=== PATIENT | female | born 1960 | race Caucasian/White ===

== ENCOUNTER 2016-10-24 09:33 | Inpatient (IN) | payer OTHER, MEDICARE ==
[~2016-10-24] VITALS: Ht 160 cm; Wt 92.1 kg
--- NOTE | 2016-10-24 09:44 | NUR ---
AMANDA BROWER FROM [facility]. EMS REPORTS THAT STAFF TOLD THEM SHE HAS BEEN SICK X4 DAYS, WENT TO URGENT CARE YESTERDAY AND TOLD SHE HAS A COLD. IS NOTED TO BE ON 2L 02 VIA MT, SATS 92%. AFEBRILE AT THIS TIME. DR REAGAN TO [facility].
--- NOTE | 2016-10-24 10:18 | RADIOLOGY REPORT ---
EXAMINATION: CHEST 1 VIEW CLINICAL INFORMATION: Cough, fever. COMPARISON: None. TECHNIQUE: An AP view of the chest is provided. FINDINGS: The cardiac silhouette is not enlarged. The mediastinal and hilar contours are unremarkable. There are neither pleural effusions nor pneumothoraces. There is streaky opacification within the right lung base and likely retrocardiac opacification, as well. The osseous structures are unremarkable. IMPRESSION: Streaky right lower lobe and likely retrocardiac airspace disease which could correspond to atelectasis, though there is concern for a developing right lower lobe pneumonia. Recommendation is for a followup chest series to be obtained following treatment and/or resolution of symptoms to assure resolution of this appearance.
--- NOTE | 2016-10-24 10:32 | ED GENERAL ADULT ---
History of Present Illness General Chief Complaint: General Adult Stated Complaint: BIBA FEVER,GEN WEAKNESS Source: patient, old records, EMS Exam Limitations: clinical condition Vital Signs & Intake/Output Vital Signs & Intake/Output Vital Signs Date Time Temp Pulse Resp B/P Pulse O2 O2 Flow FiO2 Ox Delivery Rate 10/24 1126 97.7 83 20 127/71 95 Nasal 2.0L Cannula 10/24 0935 97.9 87 18 125/71 95 Room Air Allergies Coded Allergies: No Known Allergies (10/24/16) Reconcile Medications Acetaminophen (Pain Reliever) 650 MG TABLET.ER 650 MG PO Q4H PAIN (Reported) Calcium Carbonate/Vitamin D3 (Caltrate 600 + D Tablet) 600 MG-800 TABLET 1 TAB PO BID SUPPLEMENT (Reported) Clonazepam (Klonopin) 1 MG TABLET 1 TAB PO BIDP PRN SEIZURE (Reported) Fexofenadine HCl (Jaclyn Allergy) 180 MG TABLET 1 TAB PO PM ALLERGIES ( Reported) Fluticasone Propionate 50 MCG/ACTUATION SPRAY.SUSP 2 SPRAY NASB DAILY CONGESTION (Reported) Folic Acid 1 MG TABLET 1 TAB PO DAILY SUPPLEMENT (Reported) Lactulose (Enulose) 10 GRAM/15 ML SOLUTION 90 ML PO BID CONSTIPATION ( Reported) Levothyroxine Sodium 88 MCG TABLET 1 TAB PO DAILY HYPOTHYROID (Reported) Magnesium Hydroxide (Milk Of Magnesia) 400 MG/5 ML ORAL.SUSP 30 ML PO PRN CONSTIPATION (Reported) Montelukast Sodium (Singulair) 10 MG TABLET 1 TAB PO DAILY ASTHMA (Reported) Omeprazole 20 MG CAPSULE.DR 1 CAP PO DAILY GERD (Reported) Polyethylene Glycol 3350 (Miralax) 17 GRAM POWD.PACK 1 PAC PO DAILY CONSTIPATION (Reported) dissolve in water Pseudoephedrine HCl (Nasal & Sinus Decongestant) 30 MG TABLET 30 MG PO Q4H NASAL CONGESTION (Reported) Quetiapine Fumarate (Seroquel) 50 MG TABLET 3 TAB PO BID DEPRESSION (Reported ) Quetiapine Fumarate (Seroquel) 400 MG TABLET 1 TAB PO QPM DEPRESSION ( Reported) Simvastatin (Simvastatin*) 40 MG TABLET 1 TAB PO QPM HIGH CHOLESTEROL ( Reported) Core Measure Meds Pre-Hospital antibiotics Triage Note: PT LEONARDA FROM [facility]. EMS REPORTS THAT STAFF TOLD THEM SHE HAS BEEN SICK X4 DAYS, WENT TO URGENT CARE YESTERDAY AND TOLD SHE HAS A COLD. IS NOTED TO BE ON 2L 02 VIA NC, SATS 92%. AFEBRILE AT THIS TIME. DR REAGAN TO [facility]. Triage Nurses Notes Reviewed? 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 Associated Symptoms: cough LMP (ages 10-50): post menopausal : No Patient currently breastfeeds: No HPI: Several days prior to admission patient is noted have fever upper respiratory congestion cough decreased appetite and activity. She was started on Bactrim developing a rash. Prior to admission showed increased weakness and was noted to be incontinent of urine with decreased level of consciousness. There is no nausea vomiting diarrhea abdominal pain dysuria headache bleeding noted. Past History Travel History Traveled to [place] past 21 day No Medical History Any Pertinent Medical History? see below for history Neurological: seizure Cardiovascular: hyperlipidemia Respiratory: ASPIRATION PNEUMONIA Gastrointestinal: GERD Psychiatric: INTERMITTENT EXPLOSIVE DISORDER IMPULSE CONTROL DISORDER MOOD DISORDER Endocrine: hypothyroidism Surgical History Surgical History: non-contributory Psychosocial History What is your primary language Gambian Tobacco Use: Cognitive Impairment Family History Hx Contributory? No Review of Systems Review of Systems Constitutional: Reports: see HPI, fever, malaise, weakness. EENTM: Reports: see HPI, nasal congestion. Respiratory: Reports: see HPI, cough. Cardiovascular: Reports: no symptoms. GI: Reports: see HPI. Genitourinary: Reports: no symptoms. Musculoskeletal: Reports: no symptoms. Skin: Reports: see HPI. Neurological/Psychological: Reports: see HPI, cognitive dysfunction, weakness. Hematologic/Endocrine: Reports: no symptoms. Immunologic/Allergic: Reports: no symptoms. All Other Systems: Reviewed and Negative Physical Exam Physical Exam General Appearance: well developed/nourished, lethargic, moderate distress, obese Head: atraumatic, normal appearance Eyes: Bilateral: normal appearance, PERRL, EOMI. Ears, Nose, Throat: normal pharynx, dry mucus members Neck: normal inspection, supple, full range of motion, no midline tenderness Respiratory: chest non-tender, no respiratory distress, quiet respiration, lungs clear, decreased breath sounds, rales Cardiovascular: regular rate/rhythm, normal peripheral pulses, tachycardia, norml femoral pulses equa Peripheral Pulses: 4+ carotid (R), 4+ carotid (L) Gastrointestinal: normal bowel sounds, soft, non-tender, no organomegaly Back: normal inspection, normal range of motion Extremities: normal inspection, normal capillary refill, normal range of motion, no edema 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 Skin: intact, normal color, warm/dry Lymphatic: no anterior cervical vanessa Core Measures ACS in differential dx? No CVA/TIA Diagnosis: No Severe Sepsis Present: No Septic Shock Present: No Progress Differential Diagnoses I considered the following diagnoses in my evaluation of the patient: Pneumonia UTI bacteremia medication reaction Plan of Care: Orders Procedure Date/time Status CBC WITHOUT DIFFERENTIAL 10/25 0600 Active BASIC ELECTROLYTES PLUS BUN&CR 10/25 0600 Active Regular Diet 10/24 L Complete Nothing by Mouth 10/24 D Active CULTURE,URINE 10/24 1109 Active URINALYSIS 10/24 1109 Active TRC EVALUATION (GEN) 10/24 1049 Active OXYGEN SETUP (GEN) 10/24 1049 Active Pathway - chart 10/24 1049 Active House Staff 10/24 1049 Active RAPID VIRAL INFLUENZA A 10/24 1049 Active SPECIMEN TO BE OBTAINED 10/24 1049 Active STREP PNEUMO URINARY ANTIGEN 10/24 1049 Active LEGIONELLA URINARY ANTIGEN 10/24 1049 Active Patient Data 10/24 1040 Active OXYGEN SETUP (GEN) 10/24 1031 Active Saline Lock 10/24 1031 Active Admit to inpatient 10/24 1031 Active Vital Signs 10/24 1031 Active Activity/Ambulation 10/24 1031 Active Code Status 10/24 1031 Active THYROID STIMULATING HORMONE 10/24 1027 Active GLYCOSYLATED HGB 10/24 1027 Active FREE T4 10/24 1027 Active Straight Cath 10/24 1014 Active CULTURE,URINE 10/24 1014 Active URINALYSIS 10/24 1014 Active BLOOD CULTURE 10/24 1007 Active COMPREHENSIVE METABOLIC PANEL 10/24 0945 Active CBC WITHOUT DIFFERENTIAL 10/24 0945 Complete Intake & Output 10/24 0941 Active SWALLOW EVALUATION 10/24 UNK Active Lab Add-on Test 10/24 UNK Active VTE Mechanical Prophylaxis 10/24 UNK Active Vital Signs 10/24 UNK Active Seizure Precautions 10/24 UNK Active Precautions 10/24 UNK Active FingerStick- Glucose 10/24 UNK Active Current Medications Sig/Yolanda Start time Last Medication Dose Stop Time Status Admin Heparin Sodium 5,000 UNIT Q8 10/24 1400 AC (Porcine) Ampicillin Sodium/ 3,000 MG Q6 10/24 1200 UNVr Sulbactam Sodium (Unasyn) Sodium Chloride 100 ML (Normal Saline 0.9%) Sodium Chloride 1,000 ML Q13H 10/24 1115 AC (Normal Saline 0.9%) 10/25 0014 Acetaminophen 650 MG Q6P PRN 10/24 1100 AC (Tylenol) Acetaminophen/ 1 TAB Q6P PRN 10/24 1100 AC Hydrocodone Bitart (Vicodin) Oxycodone/ 2 TAB Q6P PRN 10/24 1100 AC Acetaminophen (Percocet) Laboratory Tests 10/24/16 1027: Anion Gap 10, Estimated GFR 42 L, BUN/Creatinine Ratio 10.0, Glucose 126 H, Hemoglobin A1c Pending, Calcium 9.8, Total Bilirubin 0.4, AST 33, ALT 45, Alkaline Phosphatase 89, Total Protein 6.6, Albumin 3.5, Globulin 3.1, Albumin/ Globulin Ratio 1.1, TSH Pending, Free T4 Pending, CBC w Diff NO MAN DIFF REQ, RBC 4.51, MCV 84.9, MCH 28.1, RDW 16.6 H, MPV 7.3 L, Gran % 67.7, Lymphocytes % 17.7 L, Monocytes % 8.4, Eosinophils % 6.1 H, Basophils % 0.1, Absolute Granulocytes 7.0 H, Absolute Lymphocytes 1.8, Absolute Monocytes 0.9 H, Absolute Eosinophils 0.6, Absolute Basophils 0, PUBS MCHC 33.1 Microbiology 10/24 1109 URINE ROUT: Urine Culture - ORD 10/24 1049 URINE ROUT: Legionella Antigen - ORD 10/24 1049 URINE ROUT: Streptococcus pneumoniae Antigen (M - ORD 10/24 1049 NASOPHARYN: Influenza Virus A & B Rapid Smear - ORD 10/24 1032 BLOOD: Blood Culture - RECD 10/24 1027 BLOOD: Blood Culture - RECD 10/24 1014 URINE ROUT: Urine Culture - ORD Diagnostic Imaging: Viewed by Me: Radiology Read. Discussed w/RAD: Radiology Read. CXR Impression: Streaky right lower lobe and likely retrocardiac airspace disease which could correspond to atelectasis, though there is concern for a developing right lower lobe pneumonia. Initial ED EKG: none Rhythm Strip: sinus tachycardia Departure Departure Time of Disposition: 1100 Disposition: STILL A PATIENT Condition: Stable Clinical Impression Primary Impression: Pneumonia Qualifiers: Pneumonia type: due to unspecified organism Laterality: bilateral Lung location: lower lobe of lung Qualified Code: J18.9 - Pneumonia, unspecified organism Secondary Impressions: Fever Qualifiers: Fever type: unspecified Qualified Code: R50.9 - Fever, unspecified Referrals: PATIENT HAS NO PRIMARY CARE DR (PCP) Departure Forms: Customer Survey General Discharge Information Admission Note Spoke With: DEWAYNE CORBIN MD Documentation of Exam: Documentation of any treatments & extenuating circumstances including Concerns Regarding Discharge (functional status, medication knowledge or non-compliance, living conditions, etc.) that warrant an admission rather than observation: Supplemental oxygen IV fluids IV antibiotics medication adjustment continuing care discharge planning Critical Care Note Critical Care Note Critical Care Time: non-applicable
[2016-10-24 10:35] LABS: ABSOLUTE BASOPHIL COUNT 0 /CUMM (0.0-0.2); ABSOLUTE EOSINOPHIL COUNT 0.6 /CUMM (0.0-0.7); ABSOLUTE LYMPH COUNT 1.8 /CUMM (1.2-3.4); ABSOLUTE MONOCYTE COUNT 0.9 /CUMM (0.10-0.60); BASOPHIL % 0.1 % (0.0-2.0); EOSINOPHIL % 6.1 % (0-5); GRANULOCYTE % 67.7 % (42.2-75.2); HEMATOCRIT 38.3 % (37-47); MEAN CORPUSCULAR HGB 28.1 PG (27.0-31.0); MEAN CORPUSCULAR HGB CONC 33.1 G/DL (33.0-37.0); MEAN CORPUSCULAR VOLUME 84.9 FL (81.0-99.0); MEAN PLATELET VOLUME 7.3 FL (7.4-10.4); PLATELET COUNT 216 /CUMM (130-400); RBC DISTRIBUTION WIDTH 16.6 % (11.5-14.5); RED BLOOD CELL CT 4.51 /CUMM (4.20-5.40); WHITE BLOOD CELL COUNT 10.3 /CUMM (4.8-10.8)
--- NOTE | 2016-10-24 10:41 | History & Physical ---
NIRAV BURGOS 10/24/16 1041: General Information and HPI MD Statement: I have seen and personally examined SRINI NORIEGA and documented this H&P. The patient is a 56 year old F who presented with a patient stated chief complaint of [BIBA for altered mental status, fall, hypoxemia]. Source of Information: nurse at the senior living History of Present Illness: 56-year-old female with a past medical history of seizure disorder, hyperlipidemia, aspiration pneumonia, GERD, impulsive control mood disorder, hypothyroidism was brought in by ambulance from home. According to email EMS reports she has been sick for the past 4 days and went to an urgent care yesterday and was told that she has a cold. She was hypoxic and placed on 2 L of oxygen via nasal cannula with saturations and 92%. History is much limited as patient is minimally verbal and so history is obtained by calling the patient's senior living [facility] and speaking with the patient's nurse Erika who has been with her for almost 2 years now. According to the patient's nurse, Ms. Noriega is verbal at baseline and responds to questions as well as is able to repeat your name. Apparently she was doing completely okay on to September 20 when she underwent a colonoscopy. Following the procedure she was found to be a little bit more congested and was prescribed Robitussin every 6 hours on October 19. She continued to remain congested and on October 20 was taken to walk-in clinic where she was advised to go to the ER for concern for aspiration pneumonia. She was taken to [facility] ER and was diagnosed with upper respiratory tract infection, prescribed Robitussin, Bactrim and loratadine and was advised to follow-up with her primary care physician. She came home and was noted to be doing slightly better the following day in terms of her congestion and was ambulating around. On October 22, nurses reported a rash on her buttock area and the nurse was called who prescribed nystatin cream. The patient's mental status continued to worsen with decreased ambulation and a decrease in her alertness noted. Apparently the patient has been having increasingly difficulty ambulating for the past 4 days now and she has to be wheeled around. This morning at around 6 AM she was found to have fallen to the floor. The event was unwitnessed and it's not sure S2 how long the patient had been lying on the floor before the nurses found her. Apparently she was calling out for help and complaining of pain, seemed more drowsy. When the nurse arrived, her vitals were noted to be a blood pressure of 124/68, tachycardic to 101, MAXIMUM TEMPERATURE of 99.5. The nurses had to help her get up from the floor and called the ambulance which is why she's been brought to the hospital. The nurse also states that the patient normally ambulates independently and uses the restroom however has recently been having episodes of urinary incontinence. She denies any diarrhea, constipation, chest pain, nausea, vomiting, shortness of breath or abdominal pain that the patient may have complained off within the past few days. Allergies/Medications Allergies: Coded Allergies: No Known Allergies (10/24/16) Home Med list Acetaminophen (Pain Reliever) 650 MG TABLET.ER 650 MG PO Q4H PAIN (Reported) Calcium Carbonate/Vitamin D3 (Caltrate 600 + D Tablet) 600 MG-800 TABLET 1 TAB PO BID SUPPLEMENT (Reported) Clonazepam (Klonopin) 1 MG TABLET 1 TAB PO BID SEIZURES (Reported) Fexofenadine HCl (Jaclyn Allergy) 180 MG TABLET 1 TAB PO PM ALLERGIES ( Reported) Fluticasone Propionate 50 MCG/ACTUATION SPRAY.SUSP 2 SPRAY NASB DAILY CONGESTION (Reported) Folic Acid 1 MG TABLET 1 TAB PO DAILY SUPPLEMENT (Reported) Lactulose (Enulose) 10 GRAM/15 ML SOLUTION 90 ML PO BID CONSTIPATION ( Reported) Levothyroxine Sodium 88 MCG TABLET 1 TAB PO DAILY HYPOTHYROID (Reported) Magnesium Hydroxide (Milk Of Magnesia) 400 MG/5 ML ORAL.SUSP 30 ML PO PRN CONSTIPATION (Reported) Metformin HCl (Metformin HCl ER) 500 MG TAB.ER.24 1 TAB PO DAILY DM (Reported ) Montelukast Sodium (Singulair) 10 MG TABLET 1 TAB PO DAILY ASTHMA (Reported) Omeprazole 20 MG CAPSULE.DR 1 CAP PO DAILY GERD (Reported) Polyethylene Glycol 3350 (Miralax) 17 GRAM POWD.PACK 1 PAC PO DAILY CONSTIPATION (Reported) dissolve in water Pseudoephedrine HCl (Nasal & Sinus Decongestant) 30 MG TABLET 30 MG PO Q4H NASAL CONGESTION (Reported) Quetiapine Fumarate (Seroquel) 50 MG TABLET 3 TAB PO BID DEPRESSION (Reported ) Quetiapine Fumarate (Seroquel) 400 MG TABLET 1 TAB PO QPM DEPRESSION ( Reported) Simvastatin (Simvastatin*) 40 MG TABLET 1 TAB PO QPM HIGH CHOLESTEROL ( Reported) Past History Travel History Traveled to [place] past 21 day No Medical History Neurological: seizure Cardiovascular: hyperlipidemia Respiratory: ASPIRATION PNEUMONIA Gastrointestinal: GERD Psychiatric: INTERMITTENT EXPLOSIVE DISORDER IMPULSE CONTROL DISORDER MOOD DISORDER Endocrine: hypothyroidism Surgical History Surgical History: colonoscopy Past Family/Social History Psychosocial History Where do you live? [facility] Who Do You Live With? 3 other roommates Smoking Status: Never Smoked ETOH Use: denies use Illicit Drug Use: denies illicit drug use Functional Ability ADLs Needs Assist: dressing, eating, toileting, bathing. Ambulation: independent IADLs Needs Assist: shopping, housework, finances, food prep, telephone, transportation, medication admin. Review of Systems Review of Systems Constitutional: Reports: weakness. Denies: chills, fever. EENTM: Denies: visual changes. Cardiovascular: Reports: see HPI. Denies: chest pain, palpitations. Respiratory: Reports: see HPI, short of breath. Denies: cough, sputum production, wheezing. GI: Reports: see HPI. Denies: abdominal pain, constipation, diarrhea, nausea, bloody stool, vomiting. Genitourinary: Reports: see HPI. Neurological/Psychological: Reports: weakness. Denies: headache, numbness, tingling, tremors, tonic-clonic seizures, unable to move lower ext, unable to move upper ext. Exam & Diagnostic Data Last 24 Hrs of Vital Signs/I&O Vital Signs Date Time Temp Pulse Resp B/P Pulse O2 O2 Flow FiO2 Ox Delivery Rate 10/24 0935 97.9 87 18 125/71 95 Room Air Physical Exam General Appearance drowsy, lethargic but arousable HEENT Atraumatic, PERRLA, dry mucous membranes Neck Supple, No JVD, No thryomegaly, +2 Carotid Pulse wo Bruit, No LAD Cardiovascular Regular Rate, Normal S1, Normal S2, No Murmurs Lungs b/l coarse ronchi Abdomen Normal Bowel Sounds, Soft, No Tenderness Neurological limited. pt uncooperative Extremities No Clubbing, No Cyanosis, No Edema, Normal Pulses, No Tenderness/ Swelling, has a 1cm x1cm abrasion on her right knee Rectal has a butterfly shaped erythematous rash in her buttock area masuring 5cm x6cm; no xcoriations - fungal Last 24 Hrs of Labs/Jet: Laboratory Tests 10/24/16 1027: Sodium Pending, Potassium Pending, Chloride Pending, Carbon Dioxide Pending, Anion Gap Pending, BUN Pending, Creatinine Pending, BUN/Creatinine Ratio Pending , Glucose Pending, Calcium Pending, Total Bilirubin Pending, AST Pending, ALT Pending, Alkaline Phosphatase Pending, Total Protein Pending, Albumin Pending, Globulin Pending, Albumin/Globulin Ratio Pending, CBC w Diff NO MAN DIFF REQ, RBC 4.51, MCV 84.9, MCH 28.1, RDW 16.6 H, MPV 7.3 L, Gran % 67.7, Lymphocytes % 17.7 L, Monocytes % 8.4, Eosinophils % 6.1 H, Basophils % 0.1, Absolute Granulocytes 7.0 H, Absolute Lymphocytes 1.8, Absolute Monocytes 0.9 H, Absolute Eosinophils 0.6, Absolute Basophils 0, PUBS MCHC 33.1 Microbiology 10/24 1049 URINE ROUT: Legionella Antigen - ORD 10/24 1049 URINE ROUT: Streptococcus pneumoniae Antigen (M - ORD 10/24 1049 NASOPHARYN: Influenza Virus A & B Rapid Smear - ORD 10/24 1032 BLOOD: Blood Culture - RECD 10/24 1027 BLOOD: Blood Culture - RECD 10/24 1014 URINE ROUT: Urine Culture - ORD Diagnostic Data CXR Results FINDINGS: The cardiac silhouette is not enlarged. The mediastinal and hilar contours are unremarkable. There are neither pleural effusions nor pneumothoraces. There is streaky opacification within the right lung base and likely retrocardiac opacification, as well. The osseous structures are unremarkable. IMPRESSION: Streaky right lower lobe and likely retrocardiac airspace disease which could correspond to atelectasis, though there is concern for a developing right lower lobe pneumonia. Recommendation is for a followup chest series to be obtained following treatment and/or resolution of symptoms to assure resolution of this appearance. Assessment/Plan Assessment: 56-year-old female with a past medical history of seizure disorder, hyperlipidemia, aspiration pneumonia, GERD, impulsive control mood disorder, hypothyroidism was brought in by ambulance from senior living, with complaints of upper respiratory tract symptoms and found to be hypoxic, requiring supplemental O2. Vitals on the time of admission blood pressure 125/71, respiratory rate 18, pulse 87, afebrile saturating 95% on room after On physical exam she is drowsy, lethargic but arousable. She is minimally verbal. HEENT revealed PERRLA, dry mucous membranes. Examination of the neck did not reveal any JVD or; lymphadenopathy. Cardio vascular exam is benign with normal S1, S2, no murmurs rubs gallops S3 or S4 appreciated. Auscultation of chest reveals bilateral coarse rhonchi. Abdominal exam seems benign with abdomen soft, nontender, nondistended and bowel sounds in all 4 quadrants. Examination 4 extremities revealed no edema however there is a 1 cm x 1 cm abrasion on her right knee. Examination of the back revealed a butterfly shaped erythematous rash that seems fungal in nature with no excoriation measuring about 5 cm x 6 cm Labs pertinent for normal white blood cell count of 10,300, and H&H of 12.7/38.3 , MCV of 84.9 and platelet count 216,000. Serum chemistries revealed sodium of 143, potassium of 4.7, BUN 13, creatinine of 1.3, serum glucose elevated to 126. LFTs unremarkable with an AST/ALT of 33/45, alkaline phosphatase of 89, total bili 0.4. UA was pending. Chest x-ray revealed streaky right lower lobe and retrocardiac airspace disease concerning for developing right lower lobe pneumonia. In the ER she received a bolus of normal saline, and started on Unasyn 3001 g IV Assessment and plan #Altered mental status Differentials at this point include infection most likely upper respiratory (? flu versus PNA - could be aspiration or CAP) versus urinary tract given episodes of incontinence (however patient doesn't have a white blood cell count however was on oral medications at home) versus hypothyroidism We'll send for rapid flu swab, urinary antigen for Legionella and strep pneumo Follow-up lower respiratory culture Follow-up blood cultures 2 [facility] nebs We'll continue her on Unasyn 3000 mg IV every 6 hours for possible aspiration pneumonia for another 24 hours if continues to remain afebrile and has no leukocytosis or consider discontinuing. Weaning off oxygen to maintain saturations greater than 92% Maintain on aspiration precautions. Nothing by mouth for now. Swallow eval in a.m. Follow-up urine analysis, urine culture Follow-up TSH, free T4 #Hyperlipidemia is on simvastatin 40 mg daily, continue on Lipitor 80 mg daily while in the hospital #Seizure disorder Continue to maintain on seizure precautions Continue Klonopin 1 mg twice a day #Hypothyroidism Continue on Synthroid 88 MCG daily Follow-up TSH and free T4 #Impulsive control mode disorder Continue on Seroquel 150 mg at 8 AM and 5 PM and 400 mg at bedtime #Generalized weakness with inability to ambulate Patient is pretty much independent in terms of ambulation and does not need assistance We'll place PT eval #Mch-bhpqcrp-wpndmaxma diabetes mellitus We will hold metformin 500 mg daily Novolin sliding scale for now given nothing by mouth status Follow-up hemoglobin A1c Accu-Cheks 3 times a day at bedtime -DVT prophylaxis Heparin 5000 international units 3 times a day Diet Nothing by mouth for now CODE STATUS Full code as per W 10. According to the nurses, patient has a nannette appointed conservator. As Ranked By This Provider Problem List: 1. Altered mental state Core Measures/Miscellaneous Acute Coronary Syndrome ACS Diagnosis: No Cerebrovascular Accident CVA/TIA Diagnosis: No Congestive Heart Failure CHF Diagnosis: No Venous Thromboembolism VTE Risk Factors: Age > 40 No [facility] VTE prophylaxis d/t: No contraindications No VTE Pharm Prophylaxis d/t: No contraindications VTE Diagnosis: No VTE Type: NONE VTE Confirmed by (Test): NONE Severe Sepsis Severe Sepsis Present: No Septic Shock Septic Shock Present: No Miscellaneous Documentation Attending Case Discussed With: Dr. Smart Primary Care Physician: PATIENT HAS NO PRIMARY CARE DR Patient sees these Specialists unknown Level of Patient Care: General Medicine Resident Review Statement Resident Statement: admitted by resident FABIAN SMART MD 10/24/16 1521: Attending MD Review Statement Attending Statement Attending MD Statement: examined this patient, discuss w/resident/PA/AUTOMOTIVE DISMANTLER, agreed w/resident/PA/AUTOMOTIVE DISMANTLER, reviewed EMR data (avail), discussed with nursing, amended to note Attending Assessment/Plan: Patient is a 56-year-old female with history of seizure disorder,, impulse control disorder, hypothyroidism, history of aspiration pneumonia and GERD. She was seen at [facility] emergency room 4 days ago due to complaints of malaise and was prescribed Bactrim for presumably for pneumonia at that time. Her malaise worsened and she was seen at an urgent care center yesterday. She was prescribed an antifungal cream for a sacral rash. Her lethargic persisted today resulting in the fall at which point an ambulance was called and she was brought to the emergency room here for evaluation. Here she is found very lethargic. She mainly moans in response to questioning which is unchanged from baseline according to staff from her facility. We are unable to obtain any history from her. There was no report of seizure disorder from correction staff. On examination she was noted to have pupils that are round and equally reactive to light, regular heart sounds, mild rhonchi on auscultation however lungs currently sound clear to auscultation. Abdomen is obese soft and nontender. Bowel sounds are normoactive. She has no peripheral edema. She does move all extremities slowly spontaneously but does not follow commands. Laboratory workup reveals no leukocytosis. her creatinine is mildly elevated however there is no baseline for comparison here. Urinalysis is normal at all suggestive of a urinary tract infection. Influenza screen was negative. Chest x-ray shows streaky right lower lobe and likely retrocardiac airspace disease which could correspond to atelectasis his all developing right lower lobe pneumonia. Problems: 1. Encephalopathy; likely metabolic 2. Concern for aspiration pneumonia 3. Seizure disorder 4. Impulsive control disorder 5. Ipr-iydejqc-ujahjlzrd diabetes mellitus 6. Abnormal creatinine. Baseline is unknown currently. Plan: -Continue empiric therapy with IV antibiotics for aspiration pneumonia. -Follow-up sputum cultures if available and blood cultures. -Maintain aspiration precautions. Keep nothing by mouth for now until mental status improves. -Her altered mentation may be secondary to an underlying infection which is being treated empirically. Differentials also include postictal state versus medication side effect. However her medications for her mood disorder are chronic and have not been changed. -Add prolactin level to labs. -Recommend holding her Klonopin and Seroquel overnight until mental status improves. -In the absence of overwhelming evidence of infection would recommend head CT to rule out an acute intracranial process. -Hydrate gently overnight with D5 half and is at 100 mL an hour and repeat serum chemistry in the morning. -Obtain records from correction regarding her baseline labs. -If no improvement overnight with hydration as well as holding her psychiatric medications we'll consider EEG and neurology consultation.
--- NOTE | 2016-10-24 11:18 | NUR ---
bed 210-2
[2016-10-24] MEDS ORDERED: FOLIC ACID1 M1 PO (11:24)
[2016-10-24] MEDS ORDERED: ENULOSE10 GM/151 PO (11:25)
[2016-10-24] MEDS ORDERED: SEROQUEL50 M1 PO (11:28)
[2016-10-24] MEDS ORDERED: FLUTICASONE PRO16 GM NASB (11:29)
[2016-10-24] MEDS ORDERED: SINGULAIR10 M1 PO (11:29)
[2016-10-24] MEDS ORDERED: OMEPRAZOLE20 M2 PO (11:30)
[2016-10-24] MEDS ORDERED: CALTRATE 600 +1 EACH PO (11:30)
[2016-10-24] MEDS ORDERED: MIRALAX17 G1 PO (11:31)
[2016-10-24] MEDS ORDERED: LEVOTHYROXINE88 MCG PO (11:31)
[2016-10-24] MEDS ORDERED: ALLEGRA ALLERG180 M1 PO (11:32)
[2016-10-24] MEDS ORDERED: KLONOPIN1 M1 PO (11:33)
[2016-10-24] MEDS ORDERED: SIMVASTATIN40 M1 PO (11:33)
[2016-10-24] MEDS ORDERED: PAIN RELIEVER650 MG PO (11:34)
[2016-10-24] MEDS ORDERED: NASAL & SINUS D30 MG PO (11:35)
--- NOTE | 2016-10-24 11:35 | NUR ---
HOUSE STAFF TO [facility].
[2016-10-24] MEDS ORDERED: MILK OF MA400 MG/52 PO (11:37)
[2016-10-24] MEDS ORDERED: METFORMIN HCL500 M2 PO (11:58)
--- NOTE | 2016-10-24 12:15 | NUR ---
PT TURNED AND REPOSITIONED, [facility] PROVIDED. PT NOTED WITH RED BLANCHABLE AREA TO COCCYX.
--- NOTE | 2016-10-24 12:31 | NUR ---
REPORT TO YESSICA TOLENTINO.
--- NOTE | 2016-10-24 12:33 | NUR ---
BANDER HAND AT [facility] [phone]
--- NOTE | 2016-10-24 13:00 | NUR ---
RECEIVED FROM ER: A 56 YEAR OLD FEMALE BIBA FROM SNF ADMITTED WITH PNEUMONIA. PATIENT HAS HISTORY OF MR, ALERT ORIENTED TO SELF, COOPERATIVE WITH CARE. PATIENT SETTLED INTO BED, BED ALARM ON AND CALL ALMANZAR IN REACH. O2 2L NC ON. SEE NURSING ASSESSMENT FLOWSHEETS FOR FURTHER DOCUMENTATION.
[2016-10-24 13:15] VITALS: BP 126/78
--- NOTE | 2016-10-24 13:42 | Admission Certification ---
Admission Certification Certification Statement - As attending physician, I certify that at the time of - admission, based on clinical presentation, severity of - symptoms, need for further diagnostic testing and - therapeutic interventions, and risk of adverse outcomes - without in-hospital treatment, in my clinical assessment, - this patient requires an acute hospital stay for a minimum - of two nights or longer. I have also considered psychsocial - factors such as support system, advanced age, financial - issues, cognitive issues, and failed out-patient treatments, - past re-admission history, safety of patient, and lack of - compliance as applicable. Specific rationale supporting this admission is: Patient is being admitted to the medical service for further evaluation of her encephalopathy likely metabolic. She is currently receiving IV antibiotics.
[2016-10-24 14:31] VITALS: BP 126/78
--- NOTE | 2016-10-24 20:21 | NUR ---
NURSING NOTE; PT STRAIGHT CATH AT 1145 IN THE ER AND 2100ML OBTAINED. PT DUE TO VOID BY 1945 AND UNABLE TO VOID. THIS RN BLADDER SCAN PT AND STRAIGHT CATH PT, STRAIGHT CATH 300ML. WILL CONTINUE TO MONITOR.
[2016-10-24 23:10] VITALS: BP 106/66
[2016-10-25 07:15] VITALS: BP 110/71
[2016-10-25 07:54] LABS: ABSOLUTE BASOPHIL COUNT 0 /CUMM (0.0-0.2); ABSOLUTE EOSINOPHIL COUNT 0.7 /CUMM (0.0-0.7); ABSOLUTE GRANULOCYTE CT 4.4 /CUMM (1.4-6.5); ABSOLUTE LYMPH COUNT 1.4 /CUMM (1.2-3.4); ABSOLUTE MONOCYTE COUNT 0.7 /CUMM (0.10-0.60); BASOPHIL % 0.4 % (0.0-2.0); EOSINOPHIL % 9.3 % (0-5); GRANULOCYTE % 61.8 % (42.2-75.2); MEAN CORPUSCULAR HGB 27.5 PG (27.0-31.0); MEAN CORPUSCULAR HGB CONC 31.9 G/DL (33.0-37.0); MEAN CORPUSCULAR VOLUME 86.3 FL (81.0-99.0); MEAN PLATELET VOLUME 8.2 FL (7.4-10.4); PLATELET COUNT 177 /CUMM (130-400); RBC DISTRIBUTION WIDTH 16.9 % (11.5-14.5); RED BLOOD CELL CT 4.51 /CUMM (4.20-5.40); WHITE BLOOD CELL COUNT 7.1 /CUMM (4.8-10.8)
--- NOTE | 2016-10-25 08:20 | PN- Housestaff ---
JODY SORIA 10/25/16 0820: Subjective Follow-up For: Altered mental status Possible pneumonia Subjective: Patient seen and examined. Her engineering group manager at bedside. As per the observation of proportion logistics supervisor, patient looked more awake and alert and at her baseline today. Patient was shaking hands and speaking in one-word answers to questions. Patient had a swallow eval today when she failed, it was followed by modified barium swallow and now she is on chopped diet with thin liquids. Review of Systems Constitutional: Reports: see HPI. Objective Last 24 Hrs of Vital Signs/I&O Vital Signs Date Time Temp Pulse Resp B/P Pulse O2 O2 Flow FiO2 Ox Delivery Rate 10/25 1404 98.1 78 18 104/60 96 Room Air 10/25 1128 95 Nasal 2.0L Cannula 10/25 0800 Nasal 2.0L Cannula 10/25 0715 98.6 79 18 110/71 95 Nasal 2.0L Cannula 10/25 0000 Nasal 2.0L Cannula 10/24 2310 98.4 74 18 106/66 93 Nasal 2.0L Cannula 10/24 1911 92 Nasal 2.0L Cannula 10/24 1600 Nasal 2.0L Cannula Intake & Output 10/25 1600 10/25 0800 10/25 0000 Intake Total 0 300 800 Output Total 580 850 300 Balance -580 -550 500 Intake, IV 300 800 Intake, Oral 0 0 0 Output, Urine 580 850 300 Physical Exam General Appearance: Alert, Oriented X3, Cooperative, No Acute Distress Skin: No Rashes, No Breakdown, No Significant Lesion HEENT: Atraumatic Neck: Supple Cardiovascular: Normal S1, Normal S2 Lungs: decreased breath sounds Abdomen: Soft, No Tenderness Extremities: No Edema, Normal Pulses Current Medications: Current Medications Sig/Yolanda Start time Last Medication Dose Route Stop Time Status Admin Acetaminophen 650 MG Q6P PRN 10/24 1100 AC PO Acetaminophen/ 1 TAB Q6P PRN 10/24 1100 DC Hydrocodone Bitart PO Albuterol Sulfate 3 ML BID 10/24 1353 AC 10/25 INH 1126 Ampicillin Sodium/ 3,000 MG Q6H 10/24 1700 AC 10/25 Sulbactam Sodium IV 1040 Sodium Chloride 100 ML Atorvastatin Calcium 20 MG 1700 10/24 1700 AC 10/24 PO 1651 Clonazepam 1 MG BID 10/24 2200 CAN PO 10/31 2159 Dextrose/Sodium 1,000 ML Q10H 10/24 1600 DC 10/24 Chloride IV 10/25 0159 1631 Fluticasone 2 SPRAY DAILY 10/24 1156 AC 10/25 Propionate BARNEY 0807 Heparin Sodium 5,000 UNIT Q8 10/24 1400 AC 10/25 (Porcine) SC 1405 Insulin Aspart 0 TIDAC 10/25 1700 AC SC Insulin Human Regular 0 Q6 10/24 1200 DC 10/25 SC 1405 Lactulose 20 GM BID PRN 10/24 1215 AC PO Levothyroxine Sodium 0.088 MG DAILY 10/25 1000 AC 10/25 PO 0807 Magnesium Hydroxide 30 ML DAILY NEEDED PRN 10/24 1200 AC PO Montelukast Sodium 10 MG DAILY 10/25 1000 AC 10/25 PO 0807 Nystatin 1 KRISTINA BID 10/24 1210 AC 10/25 TOP 0806 Omeprazole 20 MG DAILY 10/25 1000 AC 10/25 PO 0807 Oxycodone/ 2 TAB Q6P PRN 10/24 1100 DC Acetaminophen PO Polyethylene Glycol 17 GM DAILY 10/25 1000 AC PO Quetiapine Fumarate 400 MG AT BEDTIME 10/24 2200 CAN PO Quetiapine Fumarate 150 MG 0800,1700 10/24 1700 AC 10/25 PO 0807 Sodium Chloride 1,000 ML Q13H 10/24 1115 DC 10/24 IV 10/25 0014 1445 Vitamin A/Vitamin D 1 KRISTINA BID 10/25 1000 AC 10/25 TOP 0807 Zinc Oxide 1 KRISTINA BID 10/25 1000 AC 10/25 TOP 0807 Last 24 Hrs of Lab/Jet Results Last 24 Hrs of Labs/Mics: Laboratory Tests 10/25/16 0650: Anion Gap 10, Estimated GFR 46 L, BUN/Creatinine Ratio 8.3, CBC w Diff NO MAN DIFF REQ, RBC 4.51, MCV 86.3, MCH 27.5, RDW 16.9 H, MPV 8.2, Gran % 61.8, Lymphocytes % 19.2 L, Monocytes % 9.3, Eosinophils % 9.3 H, Basophils % 0.4, Absolute Granulocytes 4.4, Absolute Lymphocytes 1.4, Absolute Monocytes 0.7 H, Absolute Eosinophils 0.7, Absolute Basophils 0, PUBS MCHC 31.9 L Assessment/Plan Assessment: Patient is a 56-year-old female with history of seizure disorder, impulse control disorder, hypothyroidism, history of aspiration pneumonia and GERD. She was seen at [facility] emergency room 4 days ago due to complaints of malaise and was prescribed Bactrim for presumably for pneumonia at that time. Her malaise worsened and she was seen at an urgent care center yesterday. She was prescribed an antifungal cream for a sacral rash. Her with lethargy persisted which resulted in the fall at which point an ambulance was called and she was brought to the emergency room here for evaluation. On admission she was found to be very lethargic with altered mental status. She was moaning to questions. The primary team was unable to obtain any history from her this morning the engineering group manager mentioned that she comes from a halfway with special needs and on baseline she speaks little. There was no report of seizure disorder from [facility] staff. Her lab workup was not significant for leukocytosis her creatinine was mildly elevated. Influenza screen was negative. Chest x-ray shows streaky right lower lobe and likely retrocardiac airspace disease which could correspond to atelectasis his all developing right lower lobe pneumonia. Problem list 1. Encephalopathy; likely metabolic which is improved now 2. Concern for aspiration pneumonia 3. Seizure disorder 4. Impulsive control disorder 5. Wjr-wzvwdmx-bqjhovxfh diabetes mellitus 6. Abnormal creatinine. Baseline is unknown currently. Plan: Altered mental status possibly due to an underlying infection Patient was admitted to general medical floor for monitoring. She was started on empiric Unasyn for aspiration pneumonia blood cultures and sputum culture are pending. Her influenza screen was negative. Swallowing evaluation To prevent aspiration patient was made nothing by mouth on admission. She failed swallow eval today therefore modified barium swallow was done. She is safely switch to chopped diet with thin liquids now Depression Will continue her Klonopin and Seroquel as her mental status has improved. Patient is started on Klonopin 1 mg twice a day [id number] and 1 mg as when necessary for impulsive disorder. And she is also continued on Seroquel 150 mg twice a day and also 400 mg at bedtime. These medications have been ordered as per the medication information from the halfway facility. Diabetes mellitus Patient is changed to NovoLog sliding scale (low-dose), with serial Accu-Cheks DVT prophylaxis Alps and Lovenox full Code Problem List: 1. Pneumonia 2. Fever Pain Ratin Pain Location: n/a Pain Goal: Pain 4 or less Pain Plan: tylenol prn for pain Tomorrow's Labs & Rationales: none GEN DYERFABIAN 10/25/16 1241: Attending MD Review Statement Attending Statement Attending MD Statement: examined this patient, discuss w/resident/PA/SECURITY POLICE, agreed w/resident/PA/SECURITY POLICE, reviewed EMR data (avail), discussed with nursing, discussed with case mgmt, amended to note Attending Assessment/Plan: Patient is much more alert today. She is moving more spontaneously. She attempts to answer questions however, words are incomprehensible. Product Examiner from her facility was present at the bedside and states that this is the patient 's baseline. A more detailed history was obtained from the logistics supervisor today. Apparently patient had gone to [facility] for a routine colonoscopy. She was found to have 4 polyps which were removed. Recommendations were for follow-up in 4 months. She was prescribed antibiotics to take for 4 days following the procedure. After the procedure she was noted to be more lethargic. She was also noted to be coughing increasingly. She was taken to an urgent care center the day after the procedure as she was found to have a sacral rash. She became increasingly lethargic resulted in a fall that led to her hospitalization yesterday. The logistics supervisor reports that patient is on a standing dose of clonazepam and Seroquel long-term. In addition she has when necessary doses of clonazepam which are administered anytime she has worsening impulsive behavior all when she has a doctor's visit. The logistics supervisor states that patient had significantly more clonazepam due to the visits to the endoscopy suite and the urgent care center. Altered mental status is likely a combination of aspiration pneumonia/ pneumonitis and the increased doses of clonazepam. She is currently back to her baseline mental status. Recommendations: -Her diet may be resumed after swallow evaluation today. -Resume her standing doses of clonazepam and Seroquel.. -Continue antibiotic therapy for empiric treatment of pneumonia given the abnormalities on chest x-ray as well as her high risk for aspiration. She did no months fever or white count however it is noted that she was on antibiotic therapy prior to admission. -If she continues to do well clinically she may be transitioned to Augmentin tomorrow and discharged back to the halfway. We'll complete a 5 day course of antibiotic therapy. -Wean off oxygen supplementation
--- NOTE | 2016-10-25 12:02 | NUR ---
NURSING NOTE: PATIENT LEFT FLOOR VIA STRETCHER WITH DISTRIBUTION FOR MODIFIED BARIUM SWALLOW. NURSING HOME STAFF MEMBER LEFT FLOOR WITH PATIENT WELL. PATIENT ALERT AND ORIENTED AT BASELINE. PATIENT TRASNFERED FROM BED TO STRETCHER AX1. OXYGEN STILL IN PLACE VIA NC @ 2L. WILL AWAIT PATIENT RETURN.
--- NOTE | 2016-10-25 13:33 | RADIOLOGY REPORT ---
EXAMINATION: XR MODIFIED BARIUM SWALLOW CLINICAL INFORMATION: History of possible aspiration pneumonia. COMPARISON: Chest x-ray done 10/24/2016. TECHNIQUE: Examination of the swallowing mechanism was carried out with fluoroscopic monitoring in conjunction with speech pathology. FINDINGS: With puree and nectar thick consistencies, there is no evidence of penetration or aspiration. Oral bolus formation was somewhat impaired. There is some delay in the triggering mechanism. Residual ingested material in the valleculae and piriform sinuses was cleared with consecutive swallows. With thin barium, there was transient consistent penetration but no aspiration. Residual contrast was also seen in the valleculae and piriform sinuses. The patient was able to ingest solid consistencies without adverse findings. Note should be made that the boluses while ingesting thin barium were quite large. FLUOROSCOPY TIME: Total time fluoroscopy was 2 minutes 11 seconds. NUMBER OF IMAGES: 1 recorded image. IMPRESSION: Penetration but no aspiration with thin liquid only. Recommendations will made by speech pathology.
--- NOTE | 2016-10-25 14:00 | NUR ---
NURSING NOTE: PATIENT RETURNED TO FLOOR VIA STRETCHER WITH DISTRIBUTION FROM MODIFIED BARIUM SWALLOW EVALUATION. PATIENT A/O AT BASELINE. DENIES PAIN AT THIS TIME. STAFF FROM [facility] AT BEDSIDE. WILL CONTINUE TO MONITOR.
[2016-10-25 14:04] VITALS: BP 104/60
[2016-10-25 22:35] VITALS: BP 108/64
[2016-10-26 06:59] VITALS: BP 135/78
--- NOTE | 2016-10-26 07:24 | PN- Housestaff ---
JODY SORIA 10/26/16 0723: Subjective Follow-up For: Aletered mental status Possible aspiration pneumonia Tele-Events Since Last Visit: GM Subjective: Patient seen and examined today. She was very sleeping and unarousable in the mroning however, later woke up and was talk. ( back to her baseline) Patient continues to be on 2 L of NC with plan to taper if off gradually. Per manager critical care, senior care needs a assistant in nursing who deals with the oxygen tapering. They do not have the assistant in nursing today and they will arrange for 1. Review of Systems Constitutional: Reports: see HPI. Objective Last 24 Hrs of Vital Signs/I&O Vital Signs Date Time Temp Pulse Resp B/P Pulse O2 O2 Flow FiO2 Ox Delivery Rate 10/26 1109 92 Nasal 3.0L Cannula 10/26 0930 16 91 Nasal 2.0L Cannula 10/26 0800 96 Nasal 2.0L Cannula 10/26 0733 96 Nasal 2.0L Cannula 10/26 0659 97.2 97 20 135/78 86 Room Air 10/26 0000 Nasal 2.0L Cannula 10/25 2235 97.2 74 20 108/64 98 Room Air 10/25 1906 93 Nasal 2.0L Cannula 10/25 1600 Nasal 2.0L Cannula Intake & Output 10/26 1600 10/26 0800 10/26 0000 Intake Total 800 200 240 Output Total 400 450 Balance 400 200 -210 Intake, IV 200 Intake, Oral 800 240 Output, Urine 400 450 Patient 92.079 kg Weight Physical Exam General Appearance: awake, incomprehensible speech Skin: No Rashes, No Breakdown HEENT: Atraumatic Neck: Supple Lymphatic: Cervical nl Cardiovascular: Normal S1, Normal S2 Lungs: Normal Air Movement Abdomen: Normal Bowel Sounds, Soft, No Tenderness Neurological: Normal Tone Current Medications: Current Medications Sig/Yolanda Start time Last Medication Dose Route Stop Time Status Admin Acetaminophen 650 MG Q6P PRN 10/24 1100 AC PO Albuterol Sulfate 3 ML BID 10/24 1353 AC 10/26 INH 1109 Amoxicillin/ 875 MG Q12 10/26 2000 AC Clavulanate Potassium PO Ampicillin Sodium/ 3,000 MG Q6H 10/24 1700 DC 10/26 Sulbactam Sodium IV 0541 Sodium Chloride 100 ML Atorvastatin Calcium 20 MG 1700 10/24 1700 AC 10/25 PO 1814 Clonazepam 1 MG BID 10/25 2200 AC 10/26 PO 11/01 2159 1054 Clonazepam 1 MG ONCE PRN 10/25 1515 AC PO 11/01 1514 Fluticasone 2 SPRAY DAILY 10/24 1156 AC 10/26 Propionate BARNEY 1054 Heparin Sodium 5,000 UNIT Q8 10/24 1400 AC 10/26 (Porcine) SC 1228 Insulin Aspart 0 TIDAC 10/26 1200 AC 10/26 SC 1228 Insulin Aspart 0 TIDAC 10/25 1700 DC SC Lactulose 20 GM BID PRN 10/24 1215 AC PO Levothyroxine Sodium 0.088 MG DAILY 10/25 1000 AC 10/26 PO 1054 Magnesium Hydroxide 30 ML DAILY NEEDED PRN 10/24 1200 AC PO Montelukast Sodium 10 MG DAILY 10/25 1000 AC 10/26 PO 1054 Nystatin 1 KRISTINA BID 10/24 1210 AC 10/26 TOP 1054 Omeprazole 20 MG DAILY 10/25 1000 AC 10/26 PO 1054 Polyethylene Glycol 17 GM DAILY 10/25 1000 AC 10/26 PO 1054 Quetiapine Fumarate 400 MG AT BEDTIME 10/25 2200 AC 10/25 PO 2154 Quetiapine Fumarate 150 MG 0800,1700 10/24 1700 AC 10/26 PO 1054 Vitamin A/Vitamin D 1 KRISTINA BID 10/25 1000 AC 10/26 TOP 1054 Zinc Oxide 1 KRISTINA BID 10/25 1000 AC 10/26 TOP 1054 Last 24 Hrs of Lab/Jet Results Last 24 Hrs of Labs/Mics: Laboratory Tests 10/26/16 0615: Anion Gap 8, Estimated GFR 46 L, BUN/Creatinine Ratio 10.8 Assessment/Plan Assessment: Patient is a 56-year-old female with history of seizure disorder, impulse control disorder, hypothyroidism, history of aspiration pneumonia and GERD. She was seen at [facility] emergency room 4 days ago due to complaints of malaise and was prescribed Bactrim for presumably for pneumonia at that time. Her malaise worsened and she was seen at an urgent care center yesterday. She was prescribed an antifungal cream for a sacral rash. Her with lethargy persisted which resulted in the fall at which point an ambulance was called and she was brought to the emergency room here for evaluation. On admission she was found to be very lethargic with altered mental status. She was moaning to questions. The primary team was unable to obtain any history from her this morning the group program manager mentioned that she comes from a half-way with special needs and on baseline she speaks little. There was no report of seizure disorder from [facility] staff. Her lab workup was not significant for leukocytosis her creatinine was mildly elevated. Influenza screen was negative. Chest x-ray shows streaky right lower lobe and likely retrocardiac airspace disease which could correspond to atelectasis his all developing right lower lobe pneumonia. Problem list 1. Encephalopathy; likely metabolic which is improved now 2. Concern for aspiration pneumonia 3. Seizure disorder 4. Impulsive control disorder 5. Xay-xrgjxjz-faabcmmgs diabetes mellitus 6. Abnormal creatinine. Baseline is unknown currently. Plan: Altered mental status possibly due to an underlying infection Patient was admitted to general medical floor for monitoring. She was started on empiric Unasyn for aspiration pneumonia blood cultures and sputum culture are pending. Her influenza screen was negative. She is transitioned to PO augmentin today for a total antibiotic course of 5 days. Patient is still on 2 L NC, plan to taper the oxygen down keep her saturations > 92% Swallowing evaluation To prevent aspiration patient was made nothing by mouth on admission. She failed swallow eval today therefore modified barium swallow was done. She is safely switch to chopped diet with thin liquids now. Depression Will continue her Klonopin and Seroquel as her mental status has improved. Patient is started on Klonopin 1 mg twice a day itwxze-nqy-cmehk and 1 mg as when necessary for impulsive disorder. And she is also continued on Seroquel 150 mg twice a day and also 400 mg at bedtime. These medications have been ordered as per the medication information from the half-way facility. Diabetes mellitus Patient is changed to NovoLog sliding scale (low-dose), with serial Accu-Cheks DVT prophylaxis Alps and Lovenox full Code Problem List: 1. Altered mental state 2. Pneumonia Pain Ratin Pain Location: n/a Pain Goal: Pain 4 or less Pain Plan: tylenol prnf or pain Tomorrow's Labs & Rationales: none FABIAN BLEVINS MD 10/26/16 1108: Attending Review Statement Attending Statement Attending Statement: examined this patient, discuss w/resident/PA/CLAIMS COORDINATOR, agreed w/resident/PA/CLAIMS COORDINATOR, reviewed EMR data (avail), discussed with nursing, discussed with case mgmt, amended to note Attending Assessment/Plan: Patient seen and examined. She was very drowsy this morning and initially difficult to arouse. She however awoke spontaneously. Answers simple questions and 8 breakfast without any incident. She is afebrile and hemodynamically stable. She is maintaining saturation on 2 L of oxygen. On examination her lungs are clear bilaterally. She had a modified barium swallow yesterday with no aspiration. Recommendations: -Transition to Augmentin completed total of 5 days of therapy. -Maintain aspiration precautions. -She is medically stable to be discharged today. She may continue with oxygen supplementation upon discharge and this can eventually be weaned off as tolerated.
[2016-10-26] MEDS ORDERED: AUGMENTIN 875-1 EACH PO (08:18)
--- NOTE | 2016-10-26 08:20 | Patient Discharge Instructions ---
Discharge Instructions General Discharge Information You were seen/treated for: aspiration pneumonia Special Instructions: Plwase follow up with pcp upon discharge Patient is on chopped diet with thin liquids. Please taper off NC oxygen as tolerated. Acute Coronary Syndrome Inclusion Criteria At DC or during hospital stay patient has or had the following: ACS DIAGNOSIS No Discharge Core Measures Meds if any: Prescribed or Continued at Discharge Meds if any: NOT Prescribed or Continued at Discharge Congestive Heart Failure Inclusion Criteria At DC or during hospital stay patient has or had the following: CHF DIAGNOSIS No Discharge Core Measures Meds if any: Prescribed or Continued at Discharge Meds if any: NOT Prescribed or Continued at Discharge Cerebrovascular accident Inclusion Criteria At DC or during hospital stay patient has or had the following: CVA/TIA Diagnosis No Discharge Core Measures Meds if any: Prescribed or Continued at Discharge Meds if any: NOT Prescribed or Continued at Discharge Venous thromboembolism Inclusion Criteria VTE Diagnosis No VTE Type NONE VTE Confirmed by (Test) NONE Discharge Core Measures - Per Current guidelines, there needs to be overlap - treatment for the first 5 days of Warfarin therapy. - If discharged on Warfarin prior to 5 days of - overlap therapy, the patient will need to be - assessed for post discharge needs including - *Post discharge parental anticoagulation - *Warfarin and/or parental anticoagulation education - *Follow up date to check INR post discharge At least 5 days overlap therapy as Inpatient No Meds if any: Prescribed or Continued at Discharge Note: Overlap Therapy is Warfarin and Anticoagulant Meds if any: NOT Prescribed or Continued at Discharge
--- NOTE | 2016-10-26 08:20 | Discharge Summary ---
See Addendum Visit Information Visit Dates Admission Date: 10/24/16 Discharge Date: 10/26/16 Hospital Course Course Attending Physician: FABIAN BLEVINS M.D Primary Care Physician: PATIENT HAS NO PRIMARY CARE DR Hospital Course: Patient is a 56-year-old female with history of seizure disorder, impulse control disorder, hypothyroidism, history of aspiration pneumonia and GERD. She was seen at [facility] emergency room 4 days ago due to complaints of malaise and was prescribed Bactrim for presumably for pneumonia at that time. Her malaise worsened and she was seen at an urgent care center yesterday. She was prescribed an antifungal cream for a sacral rash. Her with lethargy persisted which resulted in the fall at which point an ambulance was called and she was brought to the emergency room here for evaluation. On admission she was found to be very lethargic with altered mental status. She was moaning to questions. The primary team was unable to obtain any history from her this morning the machine group leader mentioned that she comes from a [facility] with special needs and on baseline she speaks little. There was no report of seizure disorder from [facility] staff. Her lab workup was not significant for leukocytosis her creatinine was mildly elevated. Influenza screen was negative. Chest x-ray shows streaky right lower lobe and likely retrocardiac airspace disease which could correspond to atelectasis his all developing right lower lobe pneumonia. Problem list 1. Encephalopathy; likely metabolic which is improved now 2. Concern for aspiration pneumonia 3. Seizure disorder 4. Impulsive control disorder 5. Auh-dxznsrb-rasftopwc diabetes mellitus 6. Abnormal creatinine. Baseline is unknown currently. Plan: Altered mental status possibly due to an underlying infection Patient was admitted to general medical floor for monitoring. She was started on empiric Unasyn for aspiration pneumonia blood cultures and sputum culture are pending. Her influenza screen was negative. She got 2 days of IV unasyn, she will be switched to PO augmentin for a total of 3 days to complete a 5 day course of antibiotics. Swallowing evaluation To prevent aspiration patient was made nothing by mouth on admission. She failed swallow eval today therefore modified barium swallow was done. She is safely switch to chopped diet with thin liquids now Depression Will continue her Klonopin and Seroquel as her mental status has improved. Patient is started on Klonopin 1 mg twice a day [id number] and 1 mg as when necessary for impulsive disorder. And she is also continued on Seroquel 150 mg twice a day and also 400 mg at bedtime. These medications have been ordered as per the medication information from the [facility] facility. Diabetes mellitus Patient was changed to NovoLog sliding scale (low-dose), with serial Accu-Cheks as an inpatient. She can be switched back to metformin as outpatient DVT prophylaxis Alps and Lovenox Patient is full code. Allergies: Coded Allergies: No Known Allergies (10/24/16) Disposition Summary Disposition Principal Diagnosis: Altered mental status possible due to aspiration pneumonia Additional Diagnosis: Dysphagia Diabetes Discharge Disposition: SNF Discharge Instructions General Discharge Information Code Status: Full Code Patient's Diet: chopped with thin liquids Patient's Activity: as tolerated Follow-Up Instructions/Appts: Please follow up with your PCP upon discharge. Please continue diet on mechanical chopped and thin liquids. Medications at Discharge Discharge Medications: Continue taking these medications: Folic Acid (Folic Acid) 1 MG TABLET 1 Tablet ORAL DAILY Lactulose (Enulose) 10 GRAM/15 ML SOLUTION 90 Milliliters ORAL TWICE DAILY Quetiapine Fumarate (Seroquel) 50 MG TABLET 3 Tablet ORAL TWICE DAILY Quetiapine Fumarate (Seroquel) 400 MG TABLET 1 Tablet ORAL Every night Fluticasone Propionate (Fluticasone Propionate) 50 MCG/ACTUATION SPRAY.SUSP 2 [place]imax Both sides of nose DAILY Montelukast Sodium (Singulair) 10 MG TABLET 1 Tablet ORAL DAILY Omeprazole (Omeprazole) 20 MG CAPSULE.DR 1 Capsule ORAL DAILY Calcium Carbonate/Vitamin D3 (Caltrate 600 + D Tablet) 600 MG-800 TABLET 1 Tablet ORAL TWICE DAILY Levothyroxine Sodium (Levothyroxine Sodium) 88 MCG TABLET 1 Tablet ORAL DAILY Polyethylene Glycol 3350 (Miralax) 17 GRAM POWD.PACK 1 Packet ORAL DAILY Instructions: dissolve in water Fexofenadine HCl (Jaclyn Allergy) 180 MG TABLET 1 Tablet ORAL PM Simvastatin (Simvastatin*) 40 MG TABLET 1 Tablet ORAL Every night Clonazepam (Klonopin) 1 MG TABLET 1 Tablet ORAL TWICE DAILY Days = 30 Acetaminophen (Pain Reliever) 650 MG TABLET.ER 650 Milligram ORAL Q4H Pseudoephedrine HCl (Nasal & Sinus Decongestant) 30 MG TABLET 30 Milligram ORAL Q4H Magnesium Hydroxide (Milk Of Magnesia) 400 MG/5 ML ORAL.SUSP 30 Milliliters ORAL NEEDED Metformin HCl (Metformin HCl ER) 500 MG TAB.ER.24 1 Tablet ORAL DAILY Days = 30 Start taking the following new medications: Amoxicillin/Potassium Clav (Augmentin 875-125 Tablet) 875 MG-125 MG TABLET 1 Tablet ORAL TWICE DAILY Qty = 5 No Refills Copies To: FABIAN BLEVINS M.D Attending MD Review Statement Documenting Attending: FABIAN BLEVINS M.D Other Findings: I have reviewed the discharge summary.
--- NOTE | 2016-10-26 09:59 | NUR ---
PATIENT NOTED TO BE SLEEPY ALL MORNING, ATTENDING PHYSICIAN AND RESIDENT CAME TO SEE PATIENT, PATIENT WAS SLIGHTLY DIFFICULT TO AROUSE. PATIENT WOULD SPEAK BUT NOT OPEN EYES, STATING SHE WANTS TO SLEEP. O2 SAT 91% ON 2L VIA NC. NEW ORDER TO DRAW ABG'S GIVEN. RESPIRATORY THERAPY PAGED. WILL CONTINUE TO MONITOR.
--- NOTE | 2016-10-26 10:21 | NUR ---
NURSING NOTE: PATIENT AWAKE AND ALERT AT THIS TIME. ABG ORDER CANCELLED AT THIS SINCE PATIENT HAS AWOKEN. PATIETN EATING BREAKFAST WITH MST. WILL CONTINUE TO MONITOR.
--- NOTE | 2016-10-26 14:30 | NUR ---
NURSING NOTE: PATIENT STILL MORE DROWSY AFTER EATING HER BREAKFAST. PATIENT VERBAL TO STIMULI BUT DOES NOT OPEN EYES. ABG'S RE-ORDERED BY RESIDENT JODY. RESPIRATORY THERAPY NOTIFIED. WILL CONTINUE TO MONITOR.
--- NOTE | 2016-10-26 15:06 | Event Note ---
Event Note Event Note: Of note, patient appears very lethargic today. Her ABGs do not show any acidemia. We will obtain chest CT without contrast to evaluate for underlying infectious process in the lungs possible aspiration pneumonia? Her bedtime Seroquel 400 mg is held along with her 1 mg twice a day Klonopin
--- NOTE | 2016-10-26 18:27 | CT SCAN REPORT ---
EXAMINATION: CT CHEST WITHOUT CONTRAST CLINICAL INFORMATION: Concern for aspiration. COMPARISON: Chest x-ray 10/24/2016 TECHNIQUE: Multidetector volumetric CT imaging of the chest was done. Axial MIP volume rendering provided. Sagittal and coronal reformatted images were obtained. DLP: 612.5 mGy-cm FINDINGS: LUNGS: Asymmetric elevation of right diaphragm above the left. There is dense consolidation with air bronchograms in the right lower lobe. There are small infiltrate the left lung base with associated bronchial wall thickening at the posterior left lung base. Central bronchial airways are open. There is calcification of the proximal tracheobronchial tree. MEDIASTINUM: No mediastinal mass or significant lymphadenopathy. Small pericardial effusion. PLEURA: Small volume layering right pleural effusion. AXILLA: No lymphadenopathy. UPPER ABDOMEN: Unremarkable. OSSEOUS STRUCTURES: Unremarkable. IMPRESSION: Bibasilar infiltrate, right greater than left. Small right pleural effusion. Small pericardial effusion.
[2016-10-26 23:13] VITALS: BP 120/72
[2016-10-27 06:32] VITALS: BP 119/58
--- NOTE | 2016-10-27 07:33 | PN- Housestaff ---
See Addendum Subjective Follow-up For: Aspiration pneumonia Impulse disorder Hypoxic respiratory failure Subjective: Patient seen and examined. She is more awake and alert today. She is asking for Valerie who is her dimension quarry supervisor. Patient will be discharged back to the nursing home today with oxygen. Per staff at nursing home, they did educate the nurse taking care of for her to taper oxygen. Patient will continue her antibiotic course of 5 days at the rehabilitation. Review of Systems Constitutional: Reports: see HPI. Objective Last 24 Hrs of Vital Signs/I&O Vital Signs Date Time Temp Pulse Resp B/P Pulse O2 O2 Flow FiO2 Ox Delivery Rate 10/27 1038 95 Nasal 3.0L Cannula 10/27 0632 98.9 79 20 119/58 94 Nasal 2.0L Cannula 10/27 0000 Nasal 3.0L Cannula 10/26 2313 99.2 83 20 120/72 92 Nasal 2.0L Cannula 10/26 2010 95 Nasal 4.0L Cannula 10/26 1600 Nasal 3.0L Cannula Intake & Output 10/27 1600 10/27 0800 10/27 0000 Intake Total 1500 Output Total 1000 Balance 500 Intake, Oral 1500 Number 1 Bowel Movements Output, Urine 1000 Physical Exam General Appearance: Alert, awake and talking Skin: No Rashes, No Breakdown HEENT: Atraumatic Neck: Supple Cardiovascular: Regular Rate, Normal S1, Normal S2 Lungs: decreased breath sounds bilateral Abdomen: Soft, No Tenderness Neurological: Normal Tone Extremities: No Edema, Normal Pulses Current Medications: Current Medications Sig/Yolanda Start time Last Medication Dose Route Stop Time Status Admin Acetaminophen 650 MG Q6P PRN 10/24 1100 AC PO Albuterol Sulfate 3 ML BID 10/24 1353 AC 10/27 INH 1037 Amoxicillin/ 875 MG Q12 10/26 2000 AC 10/27 Clavulanate Potassium PO 0908 Atorvastatin Calcium 20 MG 1700 10/24 1700 AC 10/26 PO 1726 Clonazepam 1 MG BID 10/25 2200 DC 10/26 PO 11/01 2159 1054 Clonazepam 1 MG ONCE PRN 10/25 1515 AC PO 11/01 1514 Fluticasone 2 SPRAY DAILY 10/24 1156 AC 10/27 Propionate BARNEY 0909 Heparin Sodium 5,000 UNIT Q8 10/24 1400 AC 10/27 (Porcine) SC 0621 Insulin Aspart 0 TIDAC 10/26 1200 AC 10/26 SC 1228 Lactulose 20 GM BID PRN 10/24 1215 AC PO Levothyroxine Sodium 0.088 MG DAILY 10/25 1000 10/27 PO 0908 Magnesium Hydroxide 30 ML DAILY NEEDED PRN 10/24 1200 AC PO Montelukast Sodium 10 MG DAILY 10/25 1000 AC 10/27 PO 0908 Nystatin 1 KRISTINA BID 10/24 1210 AC 10/27 TOP 0908 Omeprazole 20 MG DAILY 10/25 1000 10/27 PO 0908 Patient Medication 1 ED .STK-MED ONE 10/27 1400 [place] [facility] 10/27 1401 Polyethylene Glycol 17 GM DAILY 10/25 1000 10/27 PO 0908 Quetiapine Fumarate 400 MG AT BEDTIME 10/25 2200 DC 10/25 PO 2154 Quetiapine Fumarate 150 MG 0800,1700 10/24 1700 10/27 PO 0906 Vitamin A/Vitamin D 1 KRISTINA BID 10/25 1000 AC 10/27 TOP 0908 Zinc Oxide 1 KRISTINA BID 10/25 1000 10/27 TOP 0909 Last 24 Hrs of Lab/Jet Results Last 24 Hrs of Labs/Mics: Laboratory Tests 10/27/16 0710: Anion Gap 8, Estimated GFR 46 L, BUN/Creatinine Ratio 11.7, CBC w Diff NO MAN DIFF REQ, RBC 4.33, MCV 85.8, MCH 27.6, RDW 17.1 H, MPV 7.1 L, Gran % 59.7, Lymphocytes % 22.1, Monocytes % 10.1 H, Eosinophils % 7.8 H, Basophils % 0.3, Absolute Granulocytes 5.5, Absolute Lymphocytes 2.0, Absolute Monocytes 0.9 H, Absolute Eosinophils 0.7, Absolute Basophils 0, PUBS MCHC 32.2 L 10/26/16 1445: pH 7.41, pCO2 48 H, pO2 69 L, HCO3 30 H, ABG O2 Sat (Measured) 93.0 L, P-50 (Temp Corrected) N, Carboxyhemoglobin 0 L, O2 Concentration % 3LPM, O2 Delivery Method NC, Phlebotomy Draw Site RIGHT RADIAL Assessment/Plan Assessment: Patient is a 56-year-old female with history of seizure disorder, impulse control disorder, hypothyroidism, history of aspiration pneumonia and GERD. She was seen at [facility] emergency room 4 days ago due to complaints of malaise and was prescribed Bactrim for presumably for pneumonia at that time. Her malaise worsened and she was seen at an urgent care center yesterday. She was prescribed an antifungal cream for a sacral rash. Her with lethargy persisted which resulted in the fall at which point an ambulance was called and she was brought to the emergency room here for evaluation. On admission she was found to be very lethargic with altered mental status. She was moaning to questions. The primary team was unable to obtain any history from her this morning the dimension quarry supervisor mentioned that she comes from a nursing home with special needs and on baseline she speaks little. There was no report of seizure disorder from correction staff. Her lab workup was not significant for leukocytosis her creatinine was mildly elevated. Influenza screen was negative. Chest x-ray shows streaky right lower lobe and likely retrocardiac airspace disease which could correspond to atelectasis his all developing right lower lobe pneumonia. Problem list 1. Encephalopathy; likely metabolic which is improved now 2. Concern for aspiration pneumonia 3. Seizure disorder 4. Impulsive control disorder 5. Vbh-ubtonyo-vsencljlo diabetes mellitus 6. Abnormal creatinine. Baseline is unknown currently. Plan: Altered mental status possibly due to an underlying infection Patient was admitted to general medical floor for monitoring. She was started on empiric Unasyn for aspiration pneumonia blood cultures and sputum culture are pending. Her influenza screen was negative. She is transitioned to PO augmentin today for a total antibiotic course of 5 days. Patient is still on 2 L NC, plan to taper the oxygen down keep her saturations > 92%. Only a trained individual in the rehabilitation should taper down her oxygen. She would be discharged on oxygen to her nursing home. Swallowing evaluation To prevent aspiration patient was made nothing by mouth on admission. She failed swallow eval therefore modified barium swallow was done. She is safely switch to chopped diet with thin liquids now. Which she would be continued on at the nursing home. Depression Will continue her Klonopin and Seroquel as her mental status has improved. Patient is started on Klonopin 1 mg twice a day [id number] and 1 mg as when necessary for impulsive disorder. And she is also continued on Seroquel 150 mg twice a day and also 400 mg at bedtime. These medications have been ordered as per the medication information from the nursing home facility. On 10/26/16, patient was very drowsy and only mourned to sternal rub. Her Klonopin 1 mg at nighttime and her 400 mg of Seroquel at bedtime were held. Patient was evaluated by psych today. Recommendation is to continue her medications due to an underlying impulse disorder. Patient will follow up with her own psychiatrist within 7 days of discharge. Diabetes mellitus Patient is changed to NovoLog sliding scale (low-dose), with serial Accu-Cheks DVT prophylaxis Alps and Lovenox full Code Problem List: 1. Pneumonia 2. Fever 3. Altered mental state Pain Ratin Pain Location: Not applicable Pain Goal: Pain 4 or less Pain Plan: Tylenol when necessary for pain Tomorrow's Labs & Rationales: none
[2016-10-27 08:42] LABS: ABSOLUTE BASOPHIL COUNT 0 /CUMM (0.0-0.2); ABSOLUTE EOSINOPHIL COUNT 0.7 /CUMM (0.0-0.7); ABSOLUTE GRANULOCYTE CT 5.5 /CUMM (1.4-6.5); ABSOLUTE MONOCYTE COUNT 0.9 /CUMM (0.10-0.60); BASOPHIL % 0.3 % (0.0-2.0); EOSINOPHIL % 7.8 % (0-5); GRANULOCYTE % 59.7 % (42.2-75.2); HEMATOCRIT 37.1 % (37-47); MEAN CORPUSCULAR HGB 27.6 PG (27.0-31.0); MEAN CORPUSCULAR HGB CONC 32.2 G/DL (33.0-37.0); MEAN CORPUSCULAR VOLUME 85.8 FL (81.0-99.0); MEAN PLATELET VOLUME 7.1 FL (7.4-10.4); PLATELET COUNT 218 /CUMM (130-400); RBC DISTRIBUTION WIDTH 17.1 % (11.5-14.5); RED BLOOD CELL CT 4.33 /CUMM (4.20-5.40); WHITE BLOOD CELL COUNT 9.2 /CUMM (4.8-10.8)
--- NOTE | 2016-10-27 10:35 | NUR ---
O2 SAT ON ROOM AIR AT REST WAS 85%, ON 3L AT REST IT WAS 96%. WILL CONTINUE TO MONITOR.
--- NOTE | 2016-10-27 12:40 | Cons- Psychiatry ---
Psychiatric Consult Date of Consult: 10/27/16 Reason for Consult: Evaluate for sedation secondary to psychiatric medications. History of Present Illness: Identifying Info: 56-year-old female, currently living in a senior care. CC: Brought in by ambulance from senior care, with complaints of upper respiratory tract symptoms and found to be hypoxic, requiring supplemental O2. HPI: Brought in by ambulance from senior care, with complaints of upper respiratory tract symptoms and found to be hypoxic, requiring supplemental O2. She was seen at [facility] emergency room 4 days ago due to complaints of malaise and was prescribed Bactrim presumably for pneumonia at that time. Her malaise worsened and she was seen at an urgent care center. She was prescribed an antifungal cream for a sacral rash. Her lethargy persisted which resulted in the fall at which point an ambulance was called and she was brought to the emergency room here for evaluation. On admission she was found to be very lethargic with altered mental status. She was moaning to questions. The primary team was unable to obtain any history from her this morning the automation and controls supervisor mentioned that she comes from a senior care with special needs and on baseline she speaks little. There was no report of seizure disorder from alf staff. Last night on the inpatient unit she was noted to be lethargic. Her bedtime Seroquel 400 mg and Klonopin 1 mg were held. History is limited as patient is minimally verbal. She lives in a senior care, [place]. As per history, patient is verbal at baseline and responds to questions as well as is able to repeat your name. PMH: Please see the H&P for a complete listing Past Psych History: Diagnosed with intermittent explosive disorder, impulsive control disorder, as per patients nurse, Constanza Landeros . Patient is seen by outpatient psychiatrist Dr. Cedrick Sanchez MD Address: [address] [place] [address] Current Home Psychotropic Medications: Quetiapine Fumarate (Seroquel) 150 MG TABLET PO BID DEPRESSION (Reported) Quetiapine Fumarate (Seroquel) 400 MG TABLET 1 TAB PO QPM DEPRESSION ( Reported) Clonazepam (Klonopin) 1 MG TABLET 1 TAB PO BIDP PRN SEIZURE (Reported) Current Hospital Psychotropic Medications: Quetiapine Fumarate (Seroquel) 150 MG TABLET PO BID DEPRESSION (Reported) Quetiapine Fumarate (Seroquel) 400 MG TABLET 1 TAB PO QPM DEPRESSION ( Reported) Clonazepam (Klonopin) 1 MG TABLET 1 TAB PO BIDP PRN SEIZURE (Reported) Allergies: Coded Allergies: No Known Allergies (10/24/16) Current Medications: Current Medications Sig/Yolanda Start time Last Medication Dose Route Stop Time Status Admin Acetaminophen 650 MG Q6P PRN 10/24 1100 AC PO Albuterol Sulfate 3 ML BID 10/24 1353 AC 10/27 INH 1037 Amoxicillin/ 875 MG Q12 10/26 2000 AC 10/27 Clavulanate Potassium PO 0908 Atorvastatin Calcium 20 MG 1700 10/24 1700 AC 10/26 PO 1726 Clonazepam 1 MG BID 10/25 2200 DC 10/26 PO 11/01 2159 1054 Clonazepam 1 MG ONCE PRN 10/25 1515 AC PO 11/01 1514 Fluticasone 2 SPRAY DAILY 10/24 1156 AC 10/27 Propionate BARNEY 0909 Heparin Sodium 5,000 UNIT Q8 10/24 1400 AC 10/27 (Porcine) SC 0621 Insulin Aspart 0 TIDAC 10/26 1200 AC 10/26 SC 1228 Lactulose 20 GM BID PRN 10/24 1215 AC PO Levothyroxine Sodium 0.088 MG DAILY 10/25 1000 AC 10/27 PO 0908 Magnesium Hydroxide 30 ML DAILY NEEDED PRN 10/24 1200 AC PO Montelukast Sodium 10 MG DAILY 10/25 1000 AC 10/27 PO 0908 Nystatin 1 KRISTINA BID 10/24 1210 AC 10/27 TOP 0908 Omeprazole 20 MG DAILY 10/25 1000 AC 10/27 PO 0908 Polyethylene Glycol 17 GM DAILY 10/25 1000 AC 10/27 PO 0908 Quetiapine Fumarate 400 MG AT BEDTIME 10/25 2200 DC 10/25 PO 2154 Quetiapine Fumarate 150 MG 0800,1700 10/24 1700 AC 10/27 PO 0906 Vitamin A/Vitamin D 1 KRISTINA BID 10/25 1000 AC 10/27 TOP 0908 Zinc Oxide 1 KRISTINA BID 10/25 1000 AC 10/27 TOP 0909 Past History Past Medical History Neurological: seizure EENT: NONE Cardiovascular: hyperlipidemia Respiratory: ASPIRATION PNEUMONIA Gastrointestinal: GERD Hepatic: NONE Renal: NONE Musculoskeletal: NONE Psychiatric: INTERMITTENT EXPLOSIVE DISORDER IMPULSE CONTROL DISORDER MOOD DISORDER Endocrine: diabetes, hypothyroidism Blood Disorders: NONE Cancer(s): NONE APPRENTICE EMBALMER/Reproductive: NONE Past Surgical History Surgical History: non-contributory Assessment/Plan Mental Status Orientation: Patient was not oriented to person, place or time. Affect: Blunted, Flat Speech: Delayed Neuro-vegetative: Concentration Poor, Energy Decreased Mental Status Exam: Presentation/Appearance: Cooperative with evaluation. [facility]. Orientation: Patient was not oriented to person, place, time. Eye contact: Appropriate Affect: Blunted Mood: Euthymic Depression: Denies Anxiety: Denies Thought Content: - Denies SI/HI, AH/VH, PI. - Denies Hopeless/Helpless Thoughts Thought Process: Limited Speech: Repetitive, patient often repeats her self, somewhat dysarthric Language: Poverty Judgment: Poor Insight: Poor Cognition: Unable to assess. Memory: Poor Attention/Concentration: Poor Abstractions: Poor Lab Results: Laboratory Tests 10/27 10/26 10/26 0710 1445 0615 Blood Gas pH (7.35 - 7.45 PH) 7.41 pCO2 (35 - 45 TORR) 48 H pO2 (80 - 100 TORR) 69 L HCO3 (21 - 28 MEQ/L) 30 H ABG O2 Sat (Measured) (>96.0 %) 93.0 L P-50 (Temp Corrected) N Carboxyhemoglobin (1.5 - 5.0 %) 0 L O2 Concentration % 3LPM O2 Delivery Method NC Chemistry Sodium (137 - 145 mmol/L) 142 142 Potassium (3.5 - 5.1 mmol/L) 4.6 4.5 Chloride (98 - 107 mmol/L) 102 105 Carbon Dioxide (22 - 30 mmol/L) 32 H 30 Anion Gap (5 - 16) 8 8 BUN (7 - 17 mg/dL) 14 13 Creatinine (0.5 - 1.0 mg/dL) 1.2 H 1.2 H Estimated GFR (>60 ml/min) 46 L 46 L BUN/Creatinine Ratio (7 - 25 %) 11.7 10.8 Hematology CBC w Diff NO MAN DIFF REQ WBC (4.8 - 10.8 /CUMM) 9.2 RBC (4.20 - 5.40 /CUMM) 4.33 Hgb (12.0 - 16.0 G/DL) 11.9 L Hct (37 - 47 %) 37.1 MCV (81.0 - 99.0 FL) 85.8 MCH (27.0 - 31.0 PG) 27.6 RDW (11.5 - 14.5 %) 17.1 H Plt Count (130 - 400 /CUMM) 218 MPV (7.4 - 10.4 FL) 7.1 L Gran % (42.2 - 75.2 %) 59.7 Lymphocytes % (20.5 - 51.1 %) 22.1 Monocytes % (1.7 - 9.3 %) 10.1 H Eosinophils % (0 - 5 %) 7.8 H Basophils % (0.0 - 2.0 %) 0.3 Absolute Granulocytes (1.4 - 6.5 /CUMM) 5.5 Absolute Lymphocytes (1.2 - 3.4 /CUMM) 2.0 Absolute Monocytes (0.10 - 0.60 /CUMM) 0.9 H Absolute Eosinophils (0.0 - 0.7 /CUMM) 0.7 Absolute Basophils (0.0 - 0.2 /CUMM) 0 PUBS MCHC (33.0 - 37.0 G/DL) 32.2 L Miscellaneous Phlebotomy Draw Site RIGHT RADIAL 10/26 10/25 0600 0650 Chemistry Sodium (137 - 145 mmol/L) 145 Potassium (3.5 - 5.1 mmol/L) 4.6 Chloride (98 - 107 mmol/L) 104 Carbon Dioxide (22 - 30 mmol/L) 30 Anion Gap (5 - 16) 10 BUN (7 - 17 mg/dL) 10 Creatinine (0.5 - 1.0 mg/dL) 1.2 H Estimated GFR (>60 ml/min) 46 L BUN/Creatinine Ratio (7 - 25 %) 8.3 Coagulation PT Cancelled INR Cancelled Hematology CBC w Diff NO MAN DIFF REQ WBC (4.8 - 10.8 /CUMM) 7.1 RBC (4.20 - 5.40 /CUMM) 4.51 Hgb (12.0 - 16.0 G/DL) 12.4 Hct (37 - 47 %) 39.0 MCV (81.0 - 99.0 FL) 86.3 MCH (27.0 - 31.0 PG) 27.5 RDW (11.5 - 14.5 %) 16.9 H Plt Count (130 - 400 /CUMM) 177 MPV (7.4 - 10.4 FL) 8.2 Gran % (42.2 - 75.2 %) 61.8 Lymphocytes % (20.5 - 51.1 %) 19.2 L Monocytes % (1.7 - 9.3 %) 9.3 Eosinophils % (0 - 5 %) 9.3 H Basophils % (0.0 - 2.0 %) 0.4 Absolute Granulocytes (1.4 - 6.5 /CUMM) 4.4 Absolute Lymphocytes (1.2 - 3.4 /CUMM) 1.4 Absolute Monocytes (0.10 - 0.60 /CUMM) 0.7 H Absolute Eosinophils (0.0 - 0.7 /CUMM) 0.7 Absolute Basophils (0.0 - 0.2 /CUMM) 0 PUBS MCHC (33.0 - 37.0 G/DL) 31.9 L Diffential Diagnosis: Intermittent explosive disorder. Impulsive control disorder. Family reports that she has a history of bipolar disorder, as did her parents and other family members. Impression: Last night she patient noted to be lethargic. Her bedtime Seroquel 400 mg and Klonopin 1 mg were held. Today we evaluated the patient for sedation secondary to her psychiatric medications. During our interview the patient was awake, and alert. She was verbal, however mostly kept repeating the same question "where is Valerie?" She was not alert and oriented to person, place or time. She did not appear overly sedated, or lethargic. I spoke today with the patient's senior care nurse, Constanza Landeros, cell phone [phone]. Ms. Espinosa has been seeing the patient for the past year during which time she has been stable on her current psychiatric medications. She has a history of intermittent explosive disorder, and impulsive control disorder, which appears to be well controlled with these medications. Patient is seen by psychiatrist Dr. Sanchez, who is scheduled to see the patient in November. Our suggestion is that the patient remain on her current psychiatric medications. We have advised her nurse, Ms Landeros, to reschedule her outpatient psychiatry appointment to as soon as possible, within the next week. Ms. Perezraven, stated that she would reschedule the appointment appropriately. I discussed the patient's psychiatric medications/treatment with the patient's guardian, Neema Gutierrez, tel: [phone]. Provisional Treatment Plan: Continue medications as currently prescribed. Patient will follow up with her outpatient psychiatrist next week. [phone]. Ms. Espinosa has been seeing the patient for the past year ring which time she has been stable on her current psychiatric medications. She has a history of intermittent explosive disorder, and impulsive control disorder, which appears to be well controlled with these medications. Patient is seen by psychiatrist Dr. Sanchez, who is scheduled to see the patient in November. Our suggestion is that the patient remain on her current psychiatric medications. We have advised her nurse, Ms Perezraven, to reschedule her outpatient psychiatry appointment to as soon as possible, within the next week. Kassyeliel, stated that she would reschedule the appointment appropriately. Provisional Treatment Plan: Continue medications as currently prescribed. Patient will follow up with her outpatient psychiatrist next week.
[2016-10-27 15:27] VITALS: BP 116/78
--- NOTE | 2016-10-27 20:32 | RADIOLOGY REPORT ---
EXAMINATION: ABDOMEN 1 VIEW CLINICAL INFORMATION: Bloated abdomen. COMPARISON: None. TECHNIQUE: A supine view of the abdomen is provided. FINDINGS: Contrast fills dilated loops of large bowel. There is no definite small bowel dilation. The stomach is dilated. There is no evidence for pneumoperitoneum or pneumatosis. There is atelectasis at the left lung base. The lung bases are otherwise clear. IMPRESSION: Dilated large bowel, partially filled with contrast material, without evidence of small bowel dilation. Gastric distention.
[2016-10-27 23:39] VITALS: BP 129/74
[2016-10-28 08:06] VITALS: BP 124/80
--- NOTE | 2016-10-28 11:27 | PN- Att Addend ---
Attending Addendum Attending Brief Note Patient seen and examined. Plan of care discussed with the medical team and the patient. Available lab work and radiology test reports were reviewed. Patient has mental retardation. Unable to give history. She appears comfortable otherwise she has been afebrile with stable vital signs. Vital Signs Date Time Temp Pulse Resp B/P Pulse O2 O2 Flow FiO2 Ox Delivery Rate 10/28 1046 92 Nasal 2.0L Cannula 10/28 0806 98.1 72 22 124/80 90 Nasal 2.0L Cannula 10/28 0800 Nasal 2.0L Cannula 10/28 0000 92 Nasal 2.0L Cannula 10/27 2339 98.0 76 93 129/74 90 Nasal Cannula 10/27 2035 92 Nasal 2.0L Cannula 10/27 1527 98.1 84 20 116/78 93 Nasal 2.0L Cannula Intake & Output 10/28 1600 10/28 0800 10/28 0000 Intake Total 240 480 Output Total Balance 240 480 Intake, Oral 240 480 Number 2 Bowel Movements Exam: General: Patient is arousable but sleepy without any distress CVS: S1 plus S2 without any murmur or gallops Chest: Few scattered crepitation without any wheeze. There is no respiratory distress. Abdomen: Soft nontender, bowel sound present, no guarding or rebound LOCKER ROOM MANAGER: Arousable without any focal neuro deficit and follows command appropriately Extremities: No edema; no clubbing or cyanosis noted No new labs done today. Assessment * Pneumonia * Mental retardation * Acute delirium * History of seizure disorder * Ihk-mgajxwe-njicstsyh diabetes Plan * Continue Augmentin to complete total of 5-7 days * Continue current dose of clonazepam and Seroquel * Await transfer back to [facility]
[2016-10-28 14:42] VITALS: BP 116/84
[2016-10-28 22:11] VITALS: BP 100/65
[2016-10-29 06:41] VITALS: BP 118/60
--- NOTE | 2016-10-29 08:29 | PN- Housestaff ---
Subjective Follow-up For: Aspiration pneumonia Impulse disorder Hypoxic respiratory failure Subjective: patient was seen and examined today, she is in deep sleep, responded to painful stimulus only. Patient wake up this morning and had her breakfast. vital signs are stable except for oxygen demand, increasd from 3 to 3.5 with saturation above 90% Review of Systems Constitutional: Reports: see HPI. Objective Last 24 Hrs of Vital Signs/I&O Vital Signs Date Time Temp Pulse Resp B/P Pulse O2 O2 Flow FiO2 Ox Delivery Rate 10/29 0831 90 Nasal 3.5L Cannula 10/29 0800 Nasal 3.0L Cannula 10/29 0641 98.3 82 20 118/60 91 Nasal 3.0L Cannula 10/29 0000 Nasal 2.0L Cannula 10/28 2211 99.2 82 20 100/65 92 Nasal 2.0L Cannula 10/28 2102 93 Nasal 2.0L Cannula 10/28 1600 Nasal 2.0L Cannula 10/28 1442 98.9 84 22 116/84 91 Nasal 2.0L Cannula Intake & Output 10/29 1600 10/29 0800 10/29 0000 Intake Total 420 Output Total 500 Balance -80 Intake, Oral 420 Output, Urine 500 Physical Exam General Appearance: No Acute Distress Skin: No Rashes, No Breakdown, No Significant Lesion HEENT: Atraumatic, PERRLA, EOMI, Mucous Membr. moist/pink Cardiovascular: Regular Rate, Normal S1, Normal S2, No Murmurs Lungs: diffuse ronchi Abdomen: Normal Bowel Sounds, Soft, No Tenderness Neurological: Normal Tone, Reflexes 2+ Extremities: No Clubbing, No Cyanosis, No Edema, Normal Pulses Assessment/Plan Assessment: Patient is a 56-year-old female with history of seizure disorder, impulse control disorder, hypothyroidism, history of aspiration pneumonia and GERD. She was seen at [facility] emergency room 4 days ago due to complaints of malaise and was prescribed Bactrim for presumably for pneumonia at that time. Her malaise worsened and she was seen at an urgent care center yesterday. She was prescribed an antifungal cream for a sacral rash. Her with lethargy persisted which resulted in the fall at which point an ambulance was called and she was brought to the emergency room here for evaluation. On admission she was found to be very lethargic with altered mental status. She was moaning to questions. The primary team was unable to obtain any history from her this morning the manufacturing group leader mentioned that she comes from a senior care with special needs and on baseline she speaks little. There was no report of seizure disorder from longterm staff. Her lab workup was not significant for leukocytosis her creatinine was mildly elevated. Influenza screen was negative. Chest x-ray shows streaky right lower lobe and likely retrocardiac airspace disease which could correspond to atelectasis his all developing right lower lobe pneumonia. Problem list 1. Encephalopathy; likely metabolic which is improved now 2. Concern for aspiration pneumonia 3. Seizure disorder 4. Impulsive control disorder 5. Icj-ihilhmz-afhexhqgw diabetes mellitus 6. Abnormal creatinine. Baseline is unknown currently. Plan: Altered mental status possibly due to an underlying infection -Patient is on Augmentin to finish course of 5 days for aspiration pneumonia -Oxygen demand was increased for the last 3 days, patient is very lethargic mostly due to high dose of Seroquel -Will decrease bedtime Seroquel to 260 400 -Obtain psych consultation tomorrow -Portable chest x-ray was obtained today as the patient in the afternoon to 18% on 5 L, revealed Persistent pleural-parenchymal disease right greater than left progressive since baseline radiograph 10/24/2016 with similar to recent CT scan. -Patient had TRC, improved, patient continue on 4 L saturation 92% Swallowing evaluation To prevent aspiration patient was made nothing by mouth on admission. She failed swallow eval therefore modified barium swallow was done. She is safely switch to chopped diet with thin liquids now. Which she would be continued on at the senior care. Depression Will continue her Klonopin and Seroquel as her mental status has improved. Patient is started on Klonopin 1 mg twice a day [id number] and 1 mg as when necessary for impulsive disorder. And she is also continued on Seroquel 150 mg twice a day and also 400 mg at bedtime. These medications have been ordered as per the medication information from the senior care facility. On 10/26/16, patient was very drowsy and only mourned to sternal rub. Her Klonopin 1 mg at nighttime and her 400 mg of Seroquel at bedtime were held. Patient was evaluated by psych today. Recommendation is to continue her medications due to an underlying impulse disorder. Patient will follow up with her own psychiatrist within 7 days of discharge. Diabetes mellitus Patient is changed to NovoLog sliding scale (low-dose), with serial Accu-Cheks DVT prophylaxis Alps and Lovenox full Code Problem List: 1. Pneumonia 2. Fever 3. Altered mental state Pain Ratin Pain Location: None Pain Goal: Pain 4 or less Pain Plan: Mild pain pathway Tomorrow's Labs & Rationales: CBC, CMP
--- NOTE | 2016-10-29 12:32 | PN- Att Addend ---
Attending Addendum Attending Brief Note Patient seen and examined. Plan of care discussed with the medical team and the patient. Available lab work and radiology test reports were reviewed. Patient has mental retardation. Unable to give history. She appears comfortable otherwise she has been afebrile with stable vital signs. Vital Signs Date Time Temp Pulse Resp B/P Pulse O2 O2 Flow FiO2 Ox Delivery Rate 10/29 0831 90 Nasal 3.5L Cannula 10/29 0800 Nasal 3.0L Cannula 10/29 0641 98.3 82 20 118/60 91 Nasal 3.0L Cannula 10/29 0000 Nasal 2.0L Cannula 10/28 2211 99.2 82 20 100/65 92 Nasal 2.0L Cannula 10/28 2102 93 Nasal 2.0L Cannula 10/28 1600 Nasal 2.0L Cannula 10/28 1442 98.9 84 22 116/84 91 Nasal 2.0L Cannula Intake & Output 10/29 1600 10/29 0800 10/29 0000 Intake Total 420 Output Total 500 Balance -80 Intake, Oral 420 Output, Urine 500 Exam: General: Patient is arousable but sleepy without any distress CVS: S1 plus S2 without any murmur or gallops Chest: Few scattered crepitation without any wheeze. There is no respiratory distress. Abdomen: Soft nontender, bowel sound present, no guarding or rebound POLICY ADVISER: Arousable without any focal neuro deficit and follows command appropriately Extremities: No edema; no clubbing or cyanosis noted No new labs done today. Assessment * Pneumonia * Mental retardation * Acute delirium * History of seizure disorder * Nax-ajkxpgu-sydorpkhh diabetes Plan * Continue Augmentin to complete total of 5-7 days * we'll obtain psychiatry consult to see if Seroquel dose should be reduced since patient is still somnolent. * Await transfer back to [facility]
--- NOTE | 2016-10-29 13:00 | NUR ---
NURSING NOTE: RESPIRATORY CALLED FOR PATIENT TO BE DEEP SUCTIONED. PATIENT HAVING INCREASED RHONCHI/CREPITUS NOTED. PATIENT HAVING INCREASED COUGH WITHOUT SPUTUM PRODUCTION. WILL CONTINUE TO MONITOR.
--- NOTE | 2016-10-29 14:51 | NUR ---
NURSING NOTE: PATIENT VS TAKEN PER SHIFT TIME, O2 SATURATION @ 88% ON 3.5L VIA NC. PATIENT BUMPED UP TO 5L AND O2 SAT @ 91%. RESPIRATORY CALLED. BILINGUAL RECRUITER NOIFIED. WILL AWAIT NEW ORDERS.
--- NOTE | 2016-10-29 15:00 | NUR ---
NURSING NOTE: PATIENT DEEP SUCTIONED BY RESPIRATORY AGAIN, NO SUCCESS GETTING ANY MUCUS OUT. PATIENT STILL ON 5L NC. PATIENT ALSO STRSIGHT CATH'ED AT THIS TIME FOR INABILITY TO VOID. MUCUS NOTED IN VAGINAL AREA. STRAIGHT CATH OBAINED 900CC HAZY LIGHT JENNIFER URINE. URINE SPECIMEN COLLECTED. NEW ORDER FOR UA C+S OBTAINED. URINE SAMPLES SENT TO LAB. REPORT GIVEN TO JENNIFER MORENO NURSE.
[2016-10-29 15:02] VITALS: BP 130/82
--- NOTE | 2016-10-29 17:23 | RADIOLOGY REPORT ---
EXAMINATION: XR PORTABLE CHEST CLINICAL INFORMATION: Aspiration pneumonia COMPARISON: Previous going back to 10/24/2016 TECHNIQUE: Portable portable 5:05 PM view of the chest was obtained. FINDINGS: Limited portable exam demonstrates hazy densities at both lung bases right greater than left similar to baseline CT scan consistent with known parenchymal and pleural disease. Heart size remains enlarged. No overt CHF or ectopic air. No other focal lesion. Subtle lucency right upper quadrant consistent with interposed hepatic flexure noted on recent CT scan. IMPRESSION: Persistent pleural-parenchymal disease right greater than left progressive since baseline radiograph 10/24/2016 with similar to recent CT scan.
--- NOTE | 2016-10-29 18:00 | NUR ---
LATE ENTRY: PT'S CXR RESULTS IN. DR. MIRELLA LONG AND DR. TELLEZ NOTIFIED. PENDING ANY NEW ORDERS. WILL CONT TO MONITOR.
[2016-10-29 22:22] VITALS: BP 112/68
[2016-10-30 07:16] VITALS: BP 114/62
--- NOTE | 2016-10-30 07:36 | PN- Housestaff ---
JODY SORIA 10/30/16 0735: Subjective Follow-up For: Aspiration pneumonia Drowsiness/lethargic she due to medications from impulse disorder Subjective: Patient seen and examined this morning, she looks more alert awake and active. Last night her Seroquel was decreased to 200 mg at bedtime from 400 mg. The plan is to stop the Seroquel today. Per chest x-ray tomorrow, there has been a progression in her lung disease therefore she is she switched to Unasyn today. Review of Systems Constitutional: Reports: see HPI. Objective Last 24 Hrs of Vital Signs/I&O Vital Signs Date Time Temp Pulse Resp B/P Pulse O2 O2 Flow FiO2 Ox Delivery Rate 10/30 0902 92 Nasal 5.0L Cannula 10/30 0716 98.9 79 20 114/62 92 10/30 0428 91 Venti Mask 10/30 0428 91 Venti Mask 55% 10/30 0420 88 Venti Mask 50% 10/30 0000 Nasal 5.0L Cannula 10/29 2222 99.0 81 20 112/68 90 Nasal 4.0L Cannula 10/29 1943 92 Nasal 4.0L Cannula 10/29 1600 92 Nasal 5.0L Cannula 10/29 1507 92 Nasal 5.0L Cannula 10/29 1502 98.3 86 18 130/82 90 Nasal 5.0L Cannula Intake & Output 10/30 1600 10/30 0800 10/30 0000 Intake Total 240 240 Output Total Balance 240 240 Intake, Oral 240 240 Number 1 Bowel Movements Physical Exam General Appearance: Alert, Oriented X3, Cooperative, No Acute Distress Skin: No Rashes HEENT: Atraumatic Neck: Supple Cardiovascular: Normal S1, Normal S2 Lungs: Clear to Auscultation, Normal Air Movement Abdomen: Soft, No Tenderness Assessment/Plan Assessment: Patient is a 56-year-old female with history of seizure disorder, impulse control disorder, hypothyroidism, history of aspiration pneumonia and GERD. She was seen at [facility] emergency room 4 days ago due to complaints of malaise and was prescribed Bactrim for presumably for pneumonia at that time. Her malaise worsened and she was seen at an urgent care center yesterday. She was prescribed an antifungal cream for a sacral rash. Her with lethargy persisted which resulted in the fall at which point an ambulance was called and she was brought to the emergency room here for evaluation. On admission she was found to be very lethargic with altered mental status. She was moaning to questions. 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 There was no report of seizure disorder from senior care staff. Her lab workup was not significant for leukocytosis her creatinine was mildly elevated. Influenza screen was negative. Chest x-ray shows streaky right lower lobe and likely retrocardiac airspace disease which could correspond to atelectasis his all developing right lower lobe pneumonia. Problem list 1. Encephalopathy; likely metabolic which is improved now 2. Concern for aspiration pneumonia 3. Seizure disorder 4. Impulsive control disorder 5. Zrb-zmdtvtz-mpwyrzuog diabetes mellitus 6. Abnormal creatinine. Baseline is unknown currently. Plan: Aspiration pneumonia (Hypoxic respiratory failure) -Patient is SWAITCHED BACK TO UNASYN FOR ASPIRATION PNEUMONIA. Due to her lethargy yesterday, she might have aspirated more. -Portable chest x-ray was obtained on 10/29 as patient required venti mask yesterday, total she is on 5 L NC which is increased from 2 L TRC nebs as needed Swallowing evaluation To prevent aspiration patient was made nothing by mouth on admission. She failed swallow eval therefore modified barium swallow was done. She is safely switch to chopped diet with thin liquids now. Which she would be continued on at the long term. Depression Patient takes Klonopin 1 mg twice a day [id number] and 1 mg as when necessary for impulsive disorder. WIll leave that as it is. However she takes 150 BID of seroquel and 400 at bed time seroquel. Will d/c her bed time seroquel due to increased lethargy. Will await psyc recommendations Diabetes mellitus Patient is changed to NovoLog sliding scale (low-dose), with serial Accu-Cheks DVT prophylaxis Alps and Lovenox full Code Problem List: 1. Pneumonia Pain Ratin Pain Location: N/A Pain Goal: Pain 4 or less Pain Plan: TYLENOL PRN Tomorrow's Labs & Rationales: CBC BEP FABIAN BLEVINS MD 10/30/16 1538: Attending MD Review Statement Attending Statement Attending MD Statement: examined this patient, discuss w/resident/PA/TELEVISION ANCHOR, agreed w/resident/PA/TELEVISION ANCHOR, reviewed EMR data (avail), discussed with nursing, discussed with case mgmt, amended to note Attending Assessment/Plan: Last week nighttime dose of Seroquel was discontinued and patient appeared to be more alert and was scheduled for discharge. Seroquel was restarted however she became very somnolent again in the morning. Although she has been on this regimen for a while she does not appear to be tolerating it currently. She is currently alert. She is unable to engage in meaningful conversation. She required a Ventimask over the weekend is currently on 5 L of oxygen. Her lungs are clear bilaterally. She doesn't appear volume overloaded. Recommendations: -Discontinue nighttime dose of Seroquel. Her daytime dose this may be continued. -Continue her regimen of clonidine. This may need to be adjusted if she continues to be somnolent -In view of her worsening hypoxia and chest x-ray recommend restarting patient on IV Unasyn for aspiration pneumonia. -We'll discharge for now pending further improvement of her clinical status. -Psychiatric follow-up noted. Case discussed with MAKENNA Chisholm.
[2016-10-30 08:20] LABS: ABSOLUTE BASOPHIL COUNT 0 /CUMM (0.0-0.2); ABSOLUTE EOSINOPHIL COUNT 0.7 /CUMM (0.0-0.7); ABSOLUTE GRANULOCYTE CT 7.4 /CUMM (1.4-6.5); ABSOLUTE LYMPH COUNT 1.9 /CUMM (1.2-3.4); ABSOLUTE MONOCYTE COUNT 0.8 /CUMM (0.10-0.60); BASOPHIL % 0.3 % (0.0-2.0); EOSINOPHIL % 6.6 % (0-5); GRANULOCYTE % 68.7 % (42.2-75.2); MEAN CORPUSCULAR HGB 27.8 PG (27.0-31.0); MEAN CORPUSCULAR HGB CONC 32.1 G/DL (33.0-37.0); MEAN CORPUSCULAR VOLUME 86.6 FL (81.0-99.0); MEAN PLATELET VOLUME 7.2 FL (7.4-10.4); PLATELET COUNT 216 /CUMM (130-400); RBC DISTRIBUTION WIDTH 16.8 % (11.5-14.5); RED BLOOD CELL CT 4.38 /CUMM (4.20-5.40); WHITE BLOOD CELL COUNT 10.8 /CUMM (4.8-10.8)
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
[2016-10-30 14:47] VITALS: BP 110/58
--- NOTE | 2016-10-30 17:30 | NUR ---
EVENT NOTE: RAPID RESPONSE WAS CALLED BY FELLOW RN WHEN SHE FOUND PT ON FLOOR, ON HER KNEES WITH HER HANDS ON THE BED. SHE HAD BEEN INCONTINENT OF STOOL AND APPEARS TO HAVE BEEN ON HER WAY TO THE TOILET. HER VITAL SIGNS HWERE STABLE, BLOOD SUGAR 203, MENTAL STATUS AT BASELINE, NO COMPLAINT OF PAIN. UPON EXAMINATION, HER KNEES, HANDS, ELBOWS, SHOULDERS WERE NOT REDDENED OR BRUISED. MEDICAL TEAM DEEMED THERE WAS NO NEED FOR FOLLOW UP BLOOD WORK OR CT SCAN.
--- NOTE | 2016-10-30 19:17 | Event Note ---
Event Note Event Note: Around 5:30 PM, patient had a fall while attempting to ambulate to the bathroom. She was found on her knees and rapid response was called. Patient had liquid stool running down her legs. She was subsequently cleaned by nursing staff and escorted back to bed. There was no head injury and she was at her baseline mental status after the accident.
[2016-10-31 06:35] VITALS: BP 108/70
[2016-10-31 08:11] LABS: ABSOLUTE BASOPHIL COUNT 0.1 /CUMM (0.0-0.2); ABSOLUTE EOSINOPHIL COUNT 0.6 /CUMM (0.0-0.7); ABSOLUTE GRANULOCYTE CT 6.7 /CUMM (1.4-6.5); ABSOLUTE LYMPH COUNT 2.1 /CUMM (1.2-3.4); ABSOLUTE MONOCYTE COUNT 0.8 /CUMM (0.10-0.60); BASOPHIL % 0.6 % (0.0-2.0); EOSINOPHIL % 6.1 % (0-5); GRANULOCYTE % 64.6 % (42.2-75.2); HEMATOCRIT 38.1 % (37-47); MEAN CORPUSCULAR HGB 27.4 PG (27.0-31.0); MEAN CORPUSCULAR HGB CONC 31.9 G/DL (33.0-37.0); MEAN CORPUSCULAR VOLUME 85.9 FL (81.0-99.0); MEAN PLATELET VOLUME 7.2 FL (7.4-10.4); PLATELET COUNT 225 /CUMM (130-400); RED BLOOD CELL CT 4.44 /CUMM (4.20-5.40); WHITE BLOOD CELL COUNT 10.3 /CUMM (4.8-10.8)
--- NOTE | 2016-10-31 08:31 | PN- Housestaff ---
JODY SORIA 10/31/16 0831: Subjective Follow-up For: Aspiration pneumonia Impulse disorder Drowsiness/lethargic Subjective: Patient seen and examined, she looks awake and alert today, sitting in the chair and eating her breakfast. Her oxygen requirement has come down to 2 L nasal cannula. However she continues to have low-grade fever and she continues to be on Unasyn. Her labs are not significant for any leukocytosis. Patient was seen by psych yesterday and they also recommend holding the bedtime Seroquel. Review of Systems Constitutional: Reports: see HPI. Objective Last 24 Hrs of Vital Signs/I&O Vital Signs Date Time Temp Pulse Resp B/P Pulse O2 O2 Flow FiO2 Ox Delivery Rate 10/31 0635 99.5 80 20 108/70 91 Nasal 2.0L Cannula 10/30 1815 92 Nasal 2.0L Cannula 10/30 1447 98.1 83 20 110/58 92 Nasal 5.0L Cannula 10/30 0902 92 Nasal 5.0L Cannula Intake & Output 10/31 1600 10/31 0800 10/31 0000 Intake Total 240 1100 Output Total 2200 Balance 240 -1100 Intake, IV 240 200 Intake, Oral 900 Number 4 Bowel Movements Output, Urine 2200 Physical Exam General Appearance: Alert, No Acute Distress, awake Skin: No Rashes HEENT: Atraumatic Neck: Supple Cardiovascular: Normal S1, Normal S2 Lungs: dec breath sounds due to body habitus Abdomen: Soft, No Tenderness Neurological: Normal Speech, Normal Tone Extremities: No Edema Current Medications: Current Medications Sig/Yolanda Start time Last Medication Dose Route Stop Time Status Admin Acetaminophen 650 MG Q6P PRN 10/24 1100 AC PO Albuterol Sulfate 3 ML BID 10/24 1353 AC 10/31 INH 0840 Amoxicillin/ 875 MG Q12 10/30 1000 DC Clavulanate Potassium PO Ampicillin Sodium/ 1,500 MG Q6 10/30 1200 AC 10/31 Sulbactam Sodium IV 0641 Sodium Chloride 100 ML Atorvastatin Calcium 20 MG 1700 10/24 1700 AC 10/30 PO 202 Clonazepam 0.5 MG DAILY PRN 10/30 1900 AC PO 11/06 1859 Clonazepam 1 MG BID 10/27 2200 AC 10/31 PO 11/039 0013 Clonazepam 1 MG ONCE PRN 10/25 1515 DC PO 11/01 1514 Fluticasone 2 SPRAY DAILY 10/24 1156 AC 10/30 Propionate BARNEY 1221 Haloperidol 1 MG DAILY PRN 10/30 1900 AC PO Heparin Sodium 5,000 UNIT Q8 10/24 1400 AC 10/31 (Porcine) SC 0542 Insulin Aspart 0 TIDAC 10/26 1200 AC 10/30 SC 0956 Lactulose 20 GM BID PRN 10/24 1215 AC PO Levothyroxine Sodium 0.088 MG DAILY 10/25 1000 AC 10/30 PO 1222 Magnesium Hydroxide 30 ML DAILY NEEDED PRN 10/24 1200 AC PO Montelukast Sodium 10 MG DAILY 10/25 1000 AC 10/30 PO 1222 Omeprazole 20 MG DAILY 10/25 1000 AC 10/30 PO 1222 Polyethylene Glycol 17 GM DAILY 10/25 1000 AC 10/29 PO 0922 Quetiapine Fumarate 200 MG AT BEDTIME 10/29 2200 DC 10/29 PO 203 Quetiapine Fumarate 150 MG 0800,1700 10/24 1700 AC 10/30 PO 2019 Vitamin A/Vitamin D 1 KRISTINA BID 10/25 1000 AC 10/30 TOP 210 Zinc Oxide 1 KRISTINA BID 10/25 1000 AC 10/30 TOP 210 Last 24 Hrs of Lab/Jet Results Last 24 Hrs of Labs/Mics: Laboratory Tests 10/31/16 0658: CBC w Diff NO MAN DIFF REQ, RBC 4.44, MCV 85.9, MCH 27.4, RDW 17.0 H, MPV 7.2 L, Gran % 64.6, Lymphocytes % 20.7, Monocytes % 8.0, Eosinophils % 6.1 H, Basophils % 0.6, Absolute Granulocytes 6.7 H, Absolute Lymphocytes 2.1, Absolute Monocytes 0.8 H, Absolute Eosinophils 0.6, Absolute Basophils 0.1, PUBS MCHC 31.9 L Assessment/Plan Assessment: Patient is a 56-year-old female with history of seizure disorder, impulse control disorder, hypothyroidism, history of aspiration pneumonia and GERD. She was seen at [facility] emergency room 4 days ago due to complaints of malaise and was prescribed Bactrim for presumably for pneumonia at that time. Her malaise worsened and she was seen at an urgent care center yesterday. She was prescribed an antifungal cream for a sacral rash. Her with lethargy persisted which resulted in the fall at which point an ambulance was called and she was brought to the emergency room here for evaluation. On admission she was found to be very lethargic with altered mental status. She was moaning to questions. 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 There was no report of seizure disorder from long term staff. Her lab workup was not significant for leukocytosis her creatinine was mildly elevated. Influenza screen was negative. Chest x-ray shows streaky right lower lobe and likely retrocardiac airspace disease which could correspond to atelectasis his all developing right lower lobe pneumonia. Problem list 1. Encephalopathy; likely metabolic which is improved now 2. Concern for aspiration pneumonia 3. Seizure disorder 4. Impulsive control disorder 5. Nxe-ukvbynf-clxwxqkzy diabetes mellitus 6. Abnormal creatinine. Baseline is unknown currently. Plan: Aspiration pneumonia (Hypoxic respiratory failure) -Patient is on 10/30/16 patient was switched back to Unasyn as her oxygen requirements had increased it was thought that she might have aspirated more due to her lethargic and drowsiness. Patient is back on 2 L of nasal cannula on 10/31/16 we'll continue to monitor TRC nebs as needed Swallowing evaluation To prevent aspiration patient was made nothing by mouth on admission. She failed swallow eval therefore modified barium swallow was done. She is safely switch to chopped diet with thin liquids now. Which she would be continued on at the long term. Depression Patient takes Klonopin 1 mg twice a day [id number] and 1 mg as when necessary for impulsive disorder. WIll leave that as it is. However she takes 150 BID of seroquel and 400 at bed time seroquel. Will d/c her bed time seroquel due to increased lethargy. Diabetes mellitus Patient is changed to NovoLog sliding scale (low-dose), with serial Accu-Cheks DVT prophylaxis Alps and Lovenox full Code Problem List: 1. Pneumonia Pain Ratin Pain Location: N/A Pain Goal: Pain 4 or less Pain Plan: TYLENOL PRN FOR PAIN Tomorrow's Labs & Rationales: NONE FABIAN BLEVINS MD 10/31/16 1134: Attending MD Review Statement Attending Statement Attending MD Statement: examined this patient, discuss w/resident/PA/COOK CANDY, agreed w/resident/PA/COOK CANDY, reviewed EMR data (avail), discussed with nursing, discussed with case mgmt, amended to note Attending Assessment/Plan: Patient seen and examined. Seasonal comfortably in the chair not in acute distress. Apparently yesterday evening she got out of her chair unassisted and slumped to the ground. She sustained no injuries. She was more alert during the day yesterday. She remains alert this morning. She does not respond appropriately to questioning. On examination she has no visible injuries holding her fall yesterday. Lungs are clear to auscultation bilaterally. Heart sounds are regular. Abdomen is soft and nontender. Recommendations: -Continue her scheduled daily dose of Seroquel. Continue to hold the bedtime dose of Seroquel. -Psychiatry follow-up appreciated, however will continue patient's dose of clonazepam 1 mg twice daily to control her impulsive disorder. So far she has not required when necessary doses of clonazepam. We'll try to avoid excessive and simultaneous changes to her baseline regimen. -Continue IV antibiotic therapy for Sunday. We'll complete 10 days of antibiotic therapy. -Wean off oxygen supplementation as tolerated. -Physical therapy reevaluation and she has become deconditioned. -If we are able to wean her off oxygen and she is cleared by the physical therapy service she may be discharged back to the long term in the next 24-48 hours.
--- NOTE | 2016-10-31 10:59 | PN- Psychiatry ---
Assessment/Plan Impression: The patient is alert with normal respiratory effort. After our visit yesterday, a rapid response was called for the patient after she impulsively got up to go the the bathroon without pressing the call button, and fell. There were no apparent injuries. Today, the senior group manager reported that when the patient is frustrated or does not get what she wants, she will shake her hands in front of her, grimace, and then hit whoever is nearby. I reviewed tis warning sign with nursing. The patient's Seroquel and clonazepam are used to control her behavior, and since dosing is being reduced to offset her decreased oxygenation in the setting of pneumonia, she may be more prone to outbursts. If the patient is stable on this reduced psychotropic medication burden, she can probably discharge on this regimen, provided she is seen by her outpatient psychiatrist shortly after discharge. Suggestion: 1. Continue quetiapine 150 mg PO 2X/day. Hold for oversedation or respiratory depression. 2. Continue to hold quetiapine at bedtime. 3. Please reduce scheduled clonazepam to 0.5 mg PO 2X/day. Hold for oversedation or respiratory depression. 4. Continue clonazepam 0.5 mg PO daily as needed for agitation or anxiety. 5. If severe or dangerous agitation or aggression, consider haloperidol 1 mg PO, or IM if the aptient is unable to take PO, up to once daily as needed. Hold for oversedation or respiratory depression. 6. Please send a discharge summary to Dr. Cedrick Sanchez, psychiatrist. 7. Followup appointment with Dr. Sanchez within one week after discharge, preferably sooner. We will continue to follow along with you, and expect to revisit on 11/01/16. Sandeep Chowdhury APRN, Pager [phone] Subjective Subjective: The patient was revisited today at 1045. She is alert, sitting in her chair, and delighted that her svp group director, Nohelia, is visiting her. She does not respond to most questions meaningfully, due to MR. When asked bow she slept last night, she states, "I didn't." [Her nurse reports that she did sleep well.] She is calm and cheerful. Objective Last 24 Hrs of Vital Signs/I&O Vital Signs Date Time Temp Pulse Resp B/P Pulse O2 O2 Flow FiO2 Ox Delivery Rate 03/21 0842 92 Nasal 2.0L Cannula 10/31 0635 99.5 80 20 108/70 91 Nasal 2.0L Cannula 10/31 0000 93 Nasal 2.0L Cannula 10/30 1815 92 Nasal 2.0L Cannula 10/30 1447 98.1 83 20 110/58 92 Nasal 5.0L Cannula Intake & Output 10/31 1600 10/31 0800 10/31 0000 Intake Total 240 1100 Output Total 2200 Balance 240 -1100 Intake, IV 240 200 Intake, Oral 900 Number 4 Bowel Movements Output, Urine 2200 Current Medications: Current Medications Sig/Yolanda Start time Last Medication Dose Route Stop Time Status Admin Acetaminophen 650 MG Q6P PRN 10/24 1100 AC PO Albuterol Sulfate 3 ML BID 10/24 1353 AC 10/31 INH 0840 Ampicillin Sodium/ 1,500 MG Q6 10/30 1200 AC 10/31 Sulbactam Sodium IV 0641 Sodium Chloride 100 ML Atorvastatin Calcium 20 MG 1700 10/24 1700 AC 10/30 PO 2021 Clonazepam 0.5 MG DAILY PRN 10/30 1900 AC PO 11/06 1859 Clonazepam 1 MG BID 10/27 2200 AC 10/31 PO 11/03 2159 1044 Clonazepam 1 MG ONCE PRN 10/25 1515 DC PO 11/01 1514 Fluticasone 2 SPRAY DAILY 10/24 1156 AC 10/31 Propionate BARNEY 1045 Haloperidol 1 MG DAILY PRN 10/30 1900 AC PO Heparin Sodium 5,000 UNIT Q8 10/24 1400 AC 10/31 (Porcine) SC 0542 Insulin Aspart 0 TIDAC 10/26 1200 AC 10/30 SC 0956 Lactulose 20 GM BID PRN 10/24 1215 AC PO Levothyroxine Sodium 0.088 MG DAILY 10/25 1000 AC 10/31 PO 1045 Magnesium Hydroxide 30 ML DAILY NEEDED PRN 10/24 1200 AC PO Montelukast Sodium 10 MG DAILY 10/25 1000 AC 10/31 PO 1045 Omeprazole 20 MG DAILY 10/25 1000 AC 10/31 PO 1045 Polyethylene Glycol 17 GM DAILY 10/25 1000 AC 10/29 PO 0922 Quetiapine Fumarate 150 MG 0800,1700 10/24 1700 AC 10/31 PO 1045 Vitamin A/Vitamin D 1 KRISTINA BID 10/25 1000 AC 10/31 TOP 1046 Zinc Oxide 1 KRISTINA BID 10/25 1000 AC 10/31 TOP 1046 Results Last 24 Hrs of Labs/Mics: Laboratory Tests 10/31 0658 Hematology CBC w Diff NO MAN DIFF REQ WBC (4.8 - 10.8 /CUMM) 10.3 RBC (4.20 - 5.40 /CUMM) 4.44 Hgb (12.0 - 16.0 G/DL) 12.1 Hct (37 - 47 %) 38.1 MCV (81.0 - 99.0 FL) 85.9 MCH (27.0 - 31.0 PG) 27.4 RDW (11.5 - 14.5 %) 17.0 H Plt Count (130 - 400 /CUMM) 225 MPV (7.4 - 10.4 FL) 7.2 L Gran % (42.2 - 75.2 %) 64.6 Lymphocytes % (20.5 - 51.1 %) 20.7 Monocytes % (1.7 - 9.3 %) 8.0 Eosinophils % (0 - 5 %) 6.1 H Basophils % (0.0 - 2.0 %) 0.6 Absolute Granulocytes (1.4 - 6.5 /CUMM) 6.7 H Absolute Lymphocytes (1.2 - 3.4 /CUMM) 2.1 Absolute Monocytes (0.10 - 0.60 /CUMM) 0.8 H Absolute Eosinophils (0.0 - 0.7 /CUMM) 0.6 Absolute Basophils (0.0 - 0.2 /CUMM) 0.1 PUBS MCHC (33.0 - 37.0 G/DL) 31.9 L
--- NOTE | 2016-10-31 13:51 | NUR ---
WOUND CARE: REQUESTED BY NURSING TO EVALUATE PT FOR SKIN ALTERATIONS TO BUTTOCKS / SACRUM - PT OBSERVED STANDING AT CHAIR SIDE - SKIN INTACT - SL PINK/VIOLACEOUS DISCOLORED HUE SECONDARY TO MOISTURE INC RECOMMEDNATION: APPLY MOISTURE BARRIER TWICE DAILY AFTER INC EPISODES AND PRN - ENCOURAGE SIDELYING POSITION WIB
[2016-10-31 14:33] VITALS: BP 114/76
[2016-10-31 22:10] VITALS: BP 100/60
[2016-11-01 00:16] VITALS: BP 98/62
[2016-11-01 06:54] VITALS: BP 97/58
--- NOTE | 2016-11-01 07:30 | PN- Housestaff ---
JODY SORIA 11/01/16 0730: Subjective Follow-up For: Aspiration pneumonia Impulse disorder Medication induced lethargic Subjective: Patient seen and examined this morning. She looks awake, alert and happy. She was eating her breakfast calmly in the bed. She appears to be doing well. The plan is possible discharge to her [facility] today with instructions to taper down oxygen as needed. Review of Systems Constitutional: Reports: see HPI. Objective Last 24 Hrs of Vital Signs/I&O Vital Signs Date Time Temp Pulse Resp B/P Pulse O2 O2 Flow FiO2 Ox Delivery Rate 11/01 0654 97.9 64 20 97/58 95 11/01 0016 97.6 61 18 98/62 93 11/01 0000 Nasal 2.0L Cannula 10/31 2210 97.9 71 19 100/60 93 Nasal Cannula 10/31 2045 94 Nasal 2.0L Cannula 10/31 1600 93 Nasal 2.0L Cannula 10/31 1520 Nasal 2.0L Cannula 10/31 1433 98.1 75 18 114/76 94 Nasal 2.0L Cannula Intake & Output 11/01 1600 11/01 0800 11/01 0000 Intake Total 370 840 Output Total 800 Balance 370 40 Intake, IV 250 Intake, Oral 120 840 Number 1 Bowel Movements Output, Urine 800 Physical Exam General Appearance: Alert, Cooperative, oriented to self Skin: No Rashes, No Breakdown, No Significant Lesion HEENT: Atraumatic Neck: Supple Lymphatic: Cervical nl Cardiovascular: Normal S1, Normal S2 Lungs: decreased breath sounds bilaterally due to body habitus Abdomen: Soft, No Tenderness Neurological: Normal Speech, Normal Tone Extremities: No Edema Current Medications: Current Medications Sig/Yolanda Start time Last Medication Dose Route Stop Time Status Admin Acetaminophen 650 MG Q6P PRN 10/24 1100 AC PO Albuterol Sulfate 3 ML BID 10/24 1353 AC 10/31 INH 0840 Ampicillin Sodium/ 1,500 MG Q6 10/30 1200 AC 11/01 Sulbactam Sodium IV 0612 Sodium Chloride 100 ML Atorvastatin Calcium 20 MG 1700 10/24 1700 AC 10/31 PO 1803 Clonazepam 0.5 MG DAILY PRN 10/30 1900 AC PO 11/06 1859 Clonazepam 1 MG BID 10/27 2200 AC 11/01 PO 11/03 2159 0851 Fluticasone 2 SPRAY DAILY 10/24 1156 AC 11/01 Propionate BARNEY 0824 Haloperidol 1 MG DAILY PRN 10/30 1900 AC PO Heparin Sodium 5,000 UNIT Q8 10/24 1400 AC 11/01 (Porcine) SC 0612 Insulin Aspart 0 TIDAC 10/26 1200 AC 11/01 SC 0824 Lactulose 20 GM BID PRN 10/24 1215 AC PO Levothyroxine Sodium 0.088 MG DAILY 10/25 1000 AC 11/01 PO 0825 Magnesium Hydroxide 30 ML DAILY NEEDED PRN 10/24 1200 AC PO Montelukast Sodium 10 MG DAILY 10/25 1000 AC 11/01 PO 0825 Omeprazole 20 MG DAILY 10/25 1000 AC 11/01 PO 0825 Polyethylene Glycol 17 GM DAILY 10/25 1000 AC 11/01 PO 0825 Quetiapine Fumarate 150 MG 0800,1700 10/24 1700 AC 11/01 PO 0825 Vitamin A/Vitamin D 1 KRISTINA BID 10/25 1000 AC 11/01 TOP 0824 Zinc Oxide 1 KRISTINA BID 10/25 1000 AC 11/01 TOP 0824 Assessment/Plan Assessment: Patient is a 56-year-old female with history of seizure disorder, impulse control disorder, hypothyroidism, history of aspiration pneumonia and GERD. She was seen at [facility] emergency room 4 days ago due to complaints of malaise and was prescribed Bactrim for presumably for pneumonia at that time. Her malaise worsened and she was seen at an urgent care center yesterday. She was prescribed an antifungal cream for a sacral rash. Her with lethargy persisted which resulted in the fall at which point an ambulance was called and she was brought to the emergency room here for evaluation. On admission she was found to be very lethargic with altered mental status. She was moaning to questions. The primary team was unable to obtain any history from her this morning the group tester mentioned that she comes from a [facility] with special needs and on baseline she speaks little. There was no report of seizure disorder from snf staff. Her lab workup was not significant for leukocytosis her creatinine was mildly elevated. Influenza screen was negative. Chest x-ray shows streaky right lower lobe and likely retrocardiac airspace disease which could correspond to atelectasis his all developing right lower lobe pneumonia. Problem list 1. Encephalopathy; likely metabolic which is improved now 2. Concern for aspiration pneumonia 3. Seizure disorder 4. Impulsive control disorder 5. Lqr-vroxfha-stvuyvwza diabetes mellitus 6. Abnormal creatinine. Baseline is unknown currently. Plan: Aspiration pneumonia (Hypoxic respiratory failure) -Patient is on 10/30/16 patient was switched back to Unasyn as her oxygen requirements had increased it was thought that she might have aspirated more due to her lethargic and drowsiness. Patient is back on 2 L of nasal cannula on 10/31/16 Patient appears to be doing well, plan is to switch her to by mouth Augmentin and discharge her to her [facility] for a total 10 day period of antibiotic TRC nebs as needed Swallowing evaluation To prevent aspiration patient was made nothing by mouth on admission. She failed swallow eval therefore modified barium swallow was done. She is safely switch to chopped diet with thin liquids now. Which she would be continued on at the [facility]. Depression Patient takes Klonopin 1 mg twice a day ynjkjw-ery-wyzzr and 1 mg as when necessary for impulsive disorder. WIll leave that as it is. However she takes 150 BID of seroquel and 400 at bed time seroquel. Will d/c her bed time seroquel due to increased lethargy. Patient appears to be doing well on current regimen Diabetes mellitus Patient is changed to NovoLog sliding scale (low-dose), with serial Accu-Cheks. She will be switched back to her metformin on discharge. DVT prophylaxis Alps and Lovenox full Code Problem List: 1. Pneumonia Pain Ratin Pain Location: Not applicable Pain Goal: Pain 4 or less Pain Plan: Tylenol as needed Tomorrow's Labs & Rationales: None FABIAN BLEVINS MD 11/01/16 1231: Attending MD Review Statement Attending Statement Attending MD Statement: examined this patient, discuss w/resident/PA/ELEVATOR ATTENDANT, agreed w/resident/PA/ELEVATOR ATTENDANT, discussed with family, reviewed EMR data (avail), discussed with nursing, discussed with case mgmt, reviewed images, amended to note Attending Assessment/Plan: Patient seen and examined. Resting comfortably and not in any acute distress. No issues overnight reported by the nursing staff. She remains alert. No episodes of aspiration reported by nursing staff. She was saturating 91 percent on room air while ambulating. She was seen by the physical therapist and the recommend some assistance ambulation. Anticipate that she will get stronger with time. Recommendations: -Patient has 2 more days of antibiotic therapy to complete. She has been transitioned back to oral antibiotics. -Nursing staff from the [facility] will be evaluating the patient today. If they are able to cater to the patient's physical needs at the facility she will be discharged today.
--- NOTE | 2016-11-01 07:49 | Discharge Summary ---
Visit Information Visit Dates Admission Date: 10/24/16 Discharge Date: 11/01/16 Hospital Course Course Attending Physician: FABIAN BLEVINS M.D Primary Care Physician: PATIENT HAS NO PRIMARY CARE DR Hospital Course: Patient is a 56-year-old female with history of seizure disorder, impulse control disorder, hypothyroidism, history of aspiration pneumonia and GERD. She was seen at [facility] emergency room 4 days ago due to complaints of malaise and was prescribed Bactrim for presumably for pneumonia at that time. Her malaise worsened and she was seen at an urgent care center yesterday. She was prescribed an antifungal cream for a sacral rash. Her with lethargy persisted which resulted in the fall at which point an ambulance was called and she was brought to the emergency room here for evaluation. On admission she was found to be very lethargic with altered mental status. She was moaning to questions. The primary team was unable to obtain any history from her this morning the night supervisor mentioned that she [facility] a [facility] with [facility] needs and on baseline she speaks little. There was no report of seizure disorder from custodial staff. Her lab workup was not significant for leukocytosis her creatinine was mildly elevated. Influenza screen was negative. Chest x-ray shows streaky right lower lobe and likely retrocardiac airspace disease which could correspond to atelectasis his all developing right lower lobe pneumonia. Problem list 1. Encephalopathy; likely metabolic which is improved now 2. Concern for aspiration pneumonia 3. Seizure disorder 4. Impulsive control disorder 5. Ogu-zkqyjya-kazcpbpvq diabetes mellitus 6. Abnormal creatinine. Baseline is unknown currently. Plan: Altered mental status possibly due to an underlying infection Patient was admitted to general medical floor for monitoring. She was started on empiric Unasyn for aspiration pneumonia blood cultures and sputum culture are pending. Her influenza screen was negative. She was initially started on IV unasyn then switched to PO augmentin however her respiratory status started to decline and she was switched back to Unsyn for 2 more days. Plan is to keep antibiotic therapy for a total of 10 days. She will be discharged on PO augmentin. Swallowing evaluation To prevent aspiration patient was made nothing by mouth on admission. She failed swallow evaluation initially therefore modified barium swallow was done. She is safely switch to chopped diet with thin liquids now Impulse disorder and lethargy Patient was very lethargic on her home doses of 400 seroquel at bed time and 150 BID. She is also on 1 mg klonopin BID and 1 mg kolonopine as needed. Due to lethargy, her bed time seroquel (400 mg was held). Subsequently patient was observed to be more awake and alert. She will be discharged on 150 mg BID of seroquel and 1 mg of kolonpin BID and 0.5 mg prn Diabetes mellitus Patient was changed to NovoLog sliding scale (low-dose), with serial Accu-Cheks as an inpatient. She can be switched back to metformin as outpatient DVT prophylaxis Alps and Lovenox Allergies: Coded Allergies: No Known Allergies (10/24/16) Disposition Summary Disposition Principal Diagnosis: Aspiration pneumonia Lethargy Additional Diagnosis: As above Discharge Disposition: SNF Discharge Instructions General Discharge Information Code Status: Full Code Patient's Diet: Chopped mechanical with thin liquids Patient's Activity: as tolerated Follow-Up Instructions/Appts: Please follow up with outpatient psyc services upon discharge as her psyc meds have been altered. Please follow up with PCP upon discharge Medications at Discharge Discharge Medications: Continue taking these medications: Folic Acid (Folic Acid) 1 MG TABLET 1 Tablet ORAL DAILY Comments: Last Taken: 10/26/16 Time: 11:00 AM Lactulose (Enulose) 10 GRAM/15 ML SOLUTION 90 Milliliters ORAL TWICE DAILY Comments: NOT GIVEN IN HOSPITAL Quetiapine Fumarate (Seroquel) 50 MG TABLET 3 Tablet ORAL TWICE DAILY Comments: last given 10/27/16 @ 0900 Fluticasone Propionate (Fluticasone Propionate) 50 MCG/ACTUATION SPRAY.SUSP 2 [place] Both sides of nose DAILY Comments: last given 11/01/16 @ 0900 Montelukast Sodium (Singulair) 10 MG TABLET 1 Tablet ORAL DAILY Comments: last given 11/01/16 @ 0900 Omeprazole (Omeprazole) 20 MG CAPSULE.DR 1 Capsule ORAL DAILY Comments: last given 11/01/16 @ 0900 Calcium Carbonate/Vitamin D3 (Caltrate 600 + D Tablet) 600 MG-800 TABLET 1 Tablet ORAL TWICE DAILY Comments: NOT GIVEN IN HOSPITAL Levothyroxine Sodium (Levothyroxine Sodium) 88 MCG TABLET 1 Tablet ORAL DAILY Comments: last given 11/01/16 @ 0900 Polyethylene Glycol 3350 (Miralax) 17 GRAM POWD.PACK 1 Packet ORAL DAILY Instructions: dissolve in water Comments: Last Taken: 11/01/16 Time: 0900 Fexofenadine HCl (Jaclyn Allergy) 180 MG TABLET 1 Tablet ORAL PM Comments: NOT GIVEN IN HOSPITAL Simvastatin (Simvastatin*) 40 MG TABLET 1 Tablet ORAL Every night Comments: LIPITOR LAST GIVEN : 10/31/16 Time: 18:00 Clonazepam (Klonopin) 1 MG TABLET 1 Tablet ORAL TWICE DAILY Days = 30 Comments: Last Taken: 11/01/16 Time: 10:00 AM Acetaminophen (Pain Reliever) 650 MG TABLET.ER 650 Milligram ORAL Q4H as needed for pain Comments: NOT GIVEN IN HOSPITAL Pseudoephedrine HCl (Nasal & Sinus Decongestant) 30 MG TABLET 30 Milligram ORAL Q4H as needed for nasal congestion Comments: FLONASE Last Taken: 11/01 Time: 0800 Magnesium Hydroxide (Milk Of Magnesia) 400 MG/5 ML ORAL.SUSP 30 Milliliters ORAL NEEDED Comments: NOT GIVEN IN HOSPITAL Metformin HCl (Metformin HCl ER) 500 MG TAB.ER.24 1 Tablet ORAL DAILY Days = 30 Comments: INSULIN GIVEN IN HOSPITAL Start taking the following new medications: Amoxicillin/Potassium Clav (Augmentin 875-125 Tablet) 875 MG-125 MG TABLET 1 Tablet ORAL TWICE DAILY Qty = 4 No Refills Copies To: FABIAN BLEVINS M.D
[2016-11-01] MEDS ORDERED: AUGMENTIN 875-1 EACH PO (08:07)
[2016-11-01] MEDS ORDERED: SEROQUEL400 M1 PO (13:04)
[2016-11-01] MEDS ORDERED: PROBIOTIC1 EACH PO (14:36)
--- NOTE | 2016-11-01 14:36 | PN- Psychiatry ---
Assessment/Plan Impression: The patient is alert with normal respiratory effort, and off supplemental oxygen since shortly after 0000 today. VS 11/01 0654 97.9deg, 64bpm, 20RR, 97/58, 95% on room air. I asked her long-term nurse to make an appointment for the patient to see her psychiatrist, Dr. Sanchez, within the week, if possible. I also explained that we had been concerned about the patient's poor respiratory function in the setting of pneumonia, and the team had reduced her quetiapine and clonazepam, both of which can depress respiratory drive. She had been on a venti mask several days ago, and only today has returned to room air oxygenation with the reduced med burden. The current quetiapine order is for 150 mg PO 2X/ day; the quetiapine 400 mg PO at bedtime has been discontinued. I suggested that if the patient becomes aggressive, the patient be trialed on a reduced nighttime dose of quetiapine at home, possibly 150-200 mg. Suggestion: 1. Continue quetiapine 150 mg PO 2X/day. Hold for oversedation or respiratory depression. 2. Continue to hold scheduled quetiapine at bedtime, until reviewed by Dr. Sanchez, psychiatrist. If aggression returns, consider a reduced dose of 150 mg PO at bedtime. 3. Please reduce scheduled clonazepam to 0.5 mg PO 2X/day. Hold for oversedation or respiratory depression. 4. Continue clonazepam 0.5 mg PO daily as needed for agitation or anxiety. 5. Please send a discharge summary to Dr. Cedrick Sanchez, psychiatrist. 6. Followup appointment with Dr. Sanchez within one week after discharge, preferably sooner. We do not anticipate further visits. Please reconsult if further psychiatric matters arise. Thank-you for asking us to participate in [facility]'s care. Sandeep Chowdhury APRN, Pager [phone] Subjective Subjective: The patient was seen today, 11/01/16, at 1400 in room 210-2. Her nurse from the long-term, Constanza, is present. The patient is calm, pleasant, wishing to shake hands at the beginning of the meeting. She is unable to participate in an interview, but is in no apparent distress. Objective Last 24 Hrs of Vital Signs/I&O Vital Signs Date Time Temp Pulse Resp B/P Pulse O2 O2 Flow FiO2 Ox Delivery Rate 11/01 1349 92 Room Air Room Air 11/01 0654 97.9 64 20 97/58 95 11/01 0016 97.6 61 18 98/62 93 11/01 0000 Nasal 2.0L Cannula 10/31 2210 97.9 71 19 100/60 93 Nasal Cannula 10/31 2045 94 Nasal 2.0L Cannula 10/31 1600 93 Nasal 2.0L Cannula 10/31 1520 Nasal 2.0L Cannula Intake & Output 11/01 1600 11/01 0800 11/01 0000 Intake Total 370 840 Output Total 800 Balance 370 40 Intake, IV 250 Intake, Oral 120 840 Number 1 Bowel Movements Output, Urine 800 Current Medications: Current Medications Sig/Yolanda Start time Last Medication Dose Route Stop Time Status Admin Acetaminophen 650 MG Q6P PRN 10/24 1100 AC PO Albuterol Sulfate 3 ML BID 10/24 1353 AC 10/31 INH 0840 Ampicillin Sodium/ 1,500 MG Q6 10/30 1200 AC 11/01 Sulbactam Sodium IV 1232 Sodium Chloride 100 ML Atorvastatin Calcium 20 MG 1700 10/24 1700 AC 10/31 PO 1803 Clonazepam 0.5 MG DAILY PRN 10/30 1900 AC PO 11/06 1859 Clonazepam 1 MG BID 10/27 2200 AC 11/01 PO 11/03 2159 0851 Fluticasone 2 SPRAY DAILY 10/24 1156 AC 11/01 Propionate BARNEY 0824 Haloperidol 1 MG DAILY PRN 10/30 1900 AC PO Heparin Sodium 5,000 UNIT Q8 10/24 1400 AC 11/01 (Porcine) SC 1232 Insulin Aspart 0 TIDAC 10/26 1200 AC 11/01 SC 1229 Lactobacillus 1 CAP BID 11/01 1350 AC Acidophilus PO Lactulose 20 GM BID PRN 10/24 1215 AC PO Levothyroxine Sodium 0.088 MG DAILY 10/25 1000 AC 11/01 PO 0825 Magnesium Hydroxide 30 ML DAILY NEEDED PRN 10/24 1200 AC PO Montelukast Sodium 10 MG DAILY 10/25 1000 AC 11/01 PO 0825 Omeprazole 20 MG DAILY 10/25 1000 AC 11/01 PO 0825 Polyethylene Glycol 17 GM DAILY 10/25 1000 AC 11/01 PO 0825 Quetiapine Fumarate 150 MG 0800,1700 10/24 1700 AC 11/01 PO 0825 Vitamin A/Vitamin D 1 KRISTINA BID 10/25 1000 AC 11/01 TOP 0824 Zinc Oxide 1 KRISTINA BID 10/25 1000 AC 11/01 TOP 0824
[2016-11-01 14:42] VITALS: BP 125/69
--- NOTE | 2016-11-01 15:21 | Event Note ---
Event Note Event Note: Patient had a bad b/l axillary fungal rash. She is prescribed Nystatin powder application BID for 7-10 days untill the rash improves.
--- NOTE | 2016-11-01 15:33 | NUR ---
DURING CHANGING THE PATIENT, REDNESS NOTICED UNDERNEATH ARMPITS. MD ESPANA CALLED TO ASSESS PATIENT. JOVI WILL SEND THE PATIENT ON STATIN POWDER.
--- NOTE | 2016-11-10 08:42 | Discharge Summary ---
PATIENT CARE UNIT CONFIDENTIAL COPY See Addendum Visit Information Visit Dates Admission Date: 10/24/16 Discharge Date: 10/26/16 Hospital Course Course Attending Physician: FABIAN BLEVINS M.D Primary Care Physician: PATIENT HAS NO PRIMARY CARE DR Hospital Course: Patient is a 56-year-old female with history of seizure disorder, impulse control disorder, hypothyroidism, history of aspiration pneumonia and GERD. She was seen at [facility] emergency room 4 days ago due to complaints of malaise and was prescribed Bactrim for presumably for pneumonia at that time. Her malaise worsened and she was seen at an urgent care center yesterday. She was prescribed an antifungal cream for a sacral rash. Her with lethargy persisted which resulted in the fall at which point an ambulance was called and she was brought to the emergency room here for evaluation. On admission she was found to be very lethargic with altered mental status. She was moaning to questions. The primary team was unable to obtain any history from her this morning the radio interference supervisor mentioned that she comes from a [facility] with special needs and on baseline she speaks little. There was no report of seizure disorder from senior care staff. Her lab workup was not significant for leukocytosis her creatinine was mildly elevated. Influenza screen was negative. Chest x-ray shows streaky right lower lobe and likely retrocardiac airspace disease which could correspond to atelectasis his all developing right lower lobe pneumonia. Problem list 1. Encephalopathy; likely metabolic which is improved now 2. Concern for aspiration pneumonia 3. Seizure disorder 4. Impulsive control disorder 5. Nhw-ofirjcb-oimaxiqcm diabetes mellitus 6. Abnormal creatinine. Baseline is unknown currently. Plan: Altered mental status possibly due to an underlying infection Patient was admitted to general medical floor for monitoring. She was started on empiric Unasyn for aspiration pneumonia blood cultures and sputum culture are pending. Her influenza screen was negative. She got 2 days of IV unasyn, she will be switched to PO augmentin for a total of 3 days to complete a 5 day course of antibiotics. Swallowing evaluation To prevent aspiration patient was made nothing by mouth on admission. She failed swallow eval today therefore modified barium swallow was done. She is safely switch to chopped diet with thin liquids now Depression Will continue her Klonopin and Seroquel as her mental status has improved. Patient is started on Klonopin 1 mg twice a day [id number] and 1 mg as when necessary for impulsive disorder. And she is also continued on Seroquel 150 mg twice a day and also 400 mg at bedtime. These medications have been ordered as per the medication information from the [facility] facility. Diabetes mellitus Patient was changed to NovoLog sliding scale (low-dose), with serial Accu-Cheks as an inpatient. She can be switched back to metformin as outpatient DVT prophylaxis Alps and Lovenox Patient is full code. Allergies: Coded Allergies: No Known Allergies (10/24/16) Disposition Summary Disposition Principal Diagnosis: Altered mental status possible due to aspiration pneumonia Additional Diagnosis: Dysphagia Diabetes Discharge Disposition: SNF Discharge Instructions General Discharge Information Code Status: Full Code Patient's Diet: chopped with thin liquids Patient's Activity: as tolerated Follow-Up Instructions/Appts: Please follow up with your PCP upon discharge. Please continue diet on mechanical chopped and thin liquids. Medications at Discharge Discharge Medications: Continue taking these medications: Folic Acid (Folic Acid) 1 MG TABLET 1 Tablet ORAL DAILY Lactulose (Enulose) 10 GRAM/15 ML SOLUTION 90 Milliliters ORAL TWICE DAILY Quetiapine Fumarate (Seroquel) 50 MG TABLET 3 Tablet ORAL TWICE DAILY Quetiapine Fumarate (Seroquel) 400 MG TABLET 1 Tablet ORAL Every night Fluticasone Propionate (Fluticasone Propionate) 50 MCG/ACTUATION SPRAY.SUSP 2 [place] Both sides of nose DAILY Montelukast Sodium (Singulair) 10 MG TABLET 1 Tablet ORAL DAILY Omeprazole (Omeprazole) 20 MG CAPSULE.DR 1 Capsule ORAL DAILY Calcium Carbonate/Vitamin D3 (Caltrate 600 + D Tablet) 600 MG-800 TABLET 1 Tablet ORAL TWICE DAILY Levothyroxine Sodium (Levothyroxine Sodium) 88 MCG TABLET 1 Tablet ORAL DAILY Polyethylene Glycol 3350 (Miralax) 17 GRAM POWD.PACK 1 Packet ORAL DAILY Instructions: dissolve in water Fexofenadine HCl (Jaclyn Allergy) 180 MG TABLET 1 Tablet ORAL PM Simvastatin (Simvastatin*) 40 MG TABLET 1 Tablet ORAL Every night Clonazepam (Klonopin) 1 MG TABLET 1 Tablet ORAL TWICE DAILY Days = 30 Acetaminophen (Pain Reliever) 650 MG TABLET.ER 650 Milligram ORAL Q4H Pseudoephedrine HCl (Nasal & Sinus Decongestant) 30 MG TABLET 30 Milligram ORAL Q4H Magnesium Hydroxide (Milk Of Magnesia) 400 MG/5 ML ORAL.SUSP 30 Milliliters ORAL NEEDED Metformin HCl (Metformin HCl ER) 500 MG TAB.ER.24 1 Tablet ORAL DAILY Days = 30 Start taking the following new medications: Amoxicillin/Potassium Clav (Augmentin 875-125 Tablet) 875 MG-125 MG TABLET 1 Tablet ORAL TWICE DAILY Qty = 5 No Refills Copies To: FABIAN BLEVINS M.D Attending MD Review Statement Documenting Attending: FABIAN BLEVINS M.D Other Findings: I have reviewed the discharge summary. DICTATED BY: JODY SORIA MD DATE/TIME DICTATED:10/26/16818 CORRESPONDENCE SPECIALIST:JESSICA DATE/TIME TRANSCRIBED:10/26/16818 REPORT NUMBER:[id number] CONFIDENTIAL, DO NOT COPY WITHOUT APPROPRIATE AUTHORIZATION.
== END 2016-11-01 16:08 | DRG 177 ==
LOC: ENRESERVTM → ENRESERVDT → ERH 09:33 → ENPENDDIS 10:31 → ERHI 10:31 → DELPENDDIS 10:31 → 2NB 10:31
PROVIDERS: Emergency Medicine; Internal Medicine; Internal Medicine Infectious Disease; Student in an Organized Health Care Education/Training Program; ADMIT Internal Medicine
DX: J69.0 Pneumonitis due to inhalation of food and vomit (principal); J96.91 Respiratory failure, unspecified with hypoxia; G93.40 Encephalopathy, unspecified; E03.9 Hypothyroidism, unspecified; E11.9 Type 2 diabetes mellitus without complications; B36.9 Superficial mycosis, unspecified; F63.81 Intermittent explosive disorder; G40.909 Epilepsy, unspecified, not intractable, without status epilepticus; Z79.84 Long term (current) use of oral hypoglycemic drugs; F79 Unspecified intellectual disabilities; E78.5 Hyperlipidemia, unspecified; K21.9 Gastro-esophageal reflux disease without esophagitis
CPT/HCPCS: 2NBSP; 36415; 74000; 74230; 81003; 82436; 87040; 87086; 87449; 87450; 87804; 87804-59; 93005; 93010; 94799; 97110-GO; 97116-GO; 97161-GP; 97530-GO; J1644; J7042

== ENCOUNTER 2017-12-11 16:07 | Emergency (ER) | payer OTHER, MEDICARE ==
[~2017-12-11 16:07] MED LIST: ACETAMINOPHEN325 M2 PO; ADULT ROBITUSS118 ML PO; ALLEGRA ALLERG180 M1 PO; AUGMENTIN 875-1 EACH PO; CALTRATE 600 +1 EACH PO; CLONAZEPAM1 M2 PO; DENTA 5000 PLUS51 GM PO; ENULOSE10 GM/151 PO; FLUTICASONE PRO16 GM NASB; FOLIC ACID1 M1 PO; GOLD BOND MEDI113 G1 TOP; KLONOPIN1 M1 PO; LEVOTHYROXINE88 MCG PO; METFORMIN HCL500 M2 PO; MILK OF MA400 MG/52 PO; MIRALAX119 GM PO; MIRALAX17 G1 PO; NASAL & SINUS D30 MG PO; OMEPRAZOLE20 M2 PO; PAIN RELIEVER650 MG PO; PROBIOTIC1 EACH PO; PSEUDOEPHEDRINE30 M1 PO; SENNA PLUS TAB1 EACH PO; SEROQUEL400 M1 PO; SEROQUEL50 M1 PO; SIMVASTATIN40 M1 PO; SINGULAIR10 M1 PO
--- NOTE | 2017-12-11 17:21 | ED DYSPNEA/ASTHMA COMPLAINT ---
History of Present Illness General Chief Complaint: Dyspnea (COPD, CHF, Other) Stated Complaint: COUGH, CONGESTION Source: family Exam Limitations: clinical condition (TBUI), physical impairment Vital Signs & Intake/Output Vital Signs & Intake/Output Vital Signs Date Time Temp Pulse Resp B/P B/P Pulse O2 O2 Flow FiO2 Mean Ox Delivery Rate 12/11 1921 98.2 12/11 1844 82 18 132/71 99 Room Air 12/11 1618 Nasal 2.0L Cannula 12/11 161 98.4 12/11 1609 74 20 147/66 94 Room Air Allergies Coded Allergies: No Known Allergies (10/24/16) Reconcile Medications Acetaminophen 325 MG TABLET 2 TAB PO Q4H PRN PAIN/TEMP>100 (Reported) Amoxicillin/Potassium Clav (Augmentin 875-125 Tablet) 875 MG-125 MG TABLET 1 TAB PO BID bronchitis/cough Benzonatate 200 MG CAPSULE 1 CAP PO TIDPRN cough Calcium Carbonate/Vitamin D3 (Caltrate 600 + D Tablet) 600 MG-800 TABLET 1 TAB PO BID SUPPLEMENT (Reported) Clonazepam (Klonopin) 1 MG TABLET 1 TAB PO BID SEIZURES (Reported) Clonazepam 1 MG TABLET 1 TAB PO AD 1 HR PRIOR TO APPT (Reported) Fexofenadine HCl (Jaclyn Allergy) 180 MG TABLET 1 TAB PO PM ALLERGIES ( Reported) Fluticasone Propionate 50 MCG/ACTUATION SPRAY.SUSP 2 SPRAY NASB QHS CONGESTION (Reported) Folic Acid 1 MG TABLET 1 TAB PO DAILY SUPPLEMENT (Reported) Guaifenesin/Dextromethorphan (Adult Robitussin Peak Cold Liq) 100 MG-10 MG/5 ML LIQUID 10 ML PO Q4H PRN COUGH (Reported) Levothyroxine Sodium 88 MCG TABLET 1 TAB PO DAILY HYPOTHYROID (Reported) Magnesium Hydroxide (Milk Of Magnesia) 400 MG/5 ML ORAL.SUSP 30 ML PO PRN CONSTIPATION (Reported) Menthol/Zinc Oxide (Gold Odonnell Medicated Body Powdr) 0.8 %-5 % POWDER 1 KRISTINA TOP DAILY FEET (Reported) Menthol/Zinc Oxide (Gold Odonnell Medicated Body Powdr) 0.8 %-5 % POWDER 1 KRISTINA TOP BID PRN UNDER BREASTS - CHAFFING (Reported) Metformin HCl (Metformin HCl ER) 500 MG TAB.ER.24 1 TAB PO DAILY DM (Reported ) Montelukast Sodium (Singulair) 10 MG TABLET 1 TAB PO DAILY ASTHMA (Reported) Omeprazole 20 MG CAPSULE.DR 1 CAP PO BID GERD (Reported) Polyethylene Glycol 3350 (Miralax) 17 GRAM/DOSE POWDER 17 GM PO AT BEDTIME PRN CONSTIPATION . Pseudoephedrine HCl 30 MG TABLET 1 TAB PO Q4H PRN NASAL CONGESTION (Reported) Quetiapine Fumarate (Seroquel) 50 MG TABLET 150 MG PO QAM MENTAL HEALTH ( Reported) Quetiapine Fumarate (Seroquel) 400 MG TABLET 1 TAB PO QPM MENTAL HEALTH ( Reported) Sennosides/Docusate Sodium (Senna Plus Tablet) 8.6 MG-50 MG TABLET 1 TAB PO AT BEDTIME CONSTIPATION . Simvastatin (Simvastatin*) 40 MG TABLET 1 TAB PO QPM HIGH CHOLESTEROL ( Reported) Sodium Fluoride (Denta 5000 Plus) 1.1 % CREAM..G. 1 KRISTINA PO TID TEETH ( Reported) Triage Note: PT TO ED BY AMBULANCE FROM WALK IN CLINIC FOR COUGH. PER EMS, PT BECAME COMABTIVE WITH WALK IN STAFF, HX OF TBI, HEALTH AID AT BEDSIDE. PT ARRIVES, AGIATATED, BUT REDIRECTABLE. Triage Nurses Notes Reviewed? yes Onset: Abrupt Duration: day(s): Timing: recent history Severity: mild, moderate HPI: 57-year-old female was sent in for further evaluation of a raspy cough and some reported increased difficulty breathing. Patient has a history of pneumonia. History of traumatic brain injury. She offers no information or any complaints. She was seen at the walk-in center. She was being uncooperative at the walk-in center so they called an ambulance. She has been cooperative here. (Musa Mancuso) Past History Travel History Traveled to [place] past 21 day No Medical History Any Pertinent Medical History? see below for history Neurological: seizure, MENTAL RETARDATION EENT: NONE Cardiovascular: hyperlipidemia Respiratory: ASPIRATION PNEUMONIA Gastrointestinal: GERD Hepatic: NONE Renal: NONE Musculoskeletal: NONE Psychiatric: INTERMITTENT EXPLOSIVE DISORDER IMPULSE CONTROL DISORDER MOOD DISORDER Endocrine: diabetes, hypothyroidism Blood Disorders: NONE Cancer(s): NONE DIPLOMA PHARMACY TECHNICIAN/Reproductive: NONE History of MRSA: No History of VRE: No History of CDIFF: No Surgical History Surgical History: N Psychosocial History Who do you live with Paid Attentent What is your primary language Cook Islander Tobacco Use: Never used Family History Hx Contributory? No (Musa Mancuso) Review of Systems Review of Systems Constitutional: Reports: no symptoms. EENTM: Reports: no symptoms. Respiratory: Reports: see HPI. Cardiovascular: Reports: see HPI. GI: Reports: no symptoms. Genitourinary: Reports: no symptoms. Musculoskeletal: Reports: no symptoms. Skin: Reports: no symptoms. Neurological/Psychological: Reports: no symptoms. Hematologic/Endocrine: Reports: no symptoms. Immunologic/Allergic: Reports: no symptoms. All Other Systems: Reviewed and Negative (Musa Mancuso) Physical Exam Physical Exam General Appearance: well developed/nourished, alert, awake Head: atraumatic Eyes: Bilateral: normal appearance. Ears, Nose, Throat: normal ENT inspection, hearing grossly normal Neck: normal inspection Respiratory: normal breath sounds, no respiratory distress Extremities: normal inspection Neurologic/Psych: awake, alert Skin: intact Core Measures ACS in differential dx? No CVA/TIA Diagnosis No Sepsis Present: No Sepsis Focused Exam Completed? No (Musa Mancuso) Progress Differential Diagnosis: asthma, AMI, bronchitis, pneumonia Plan of Care: Orders Procedure Date/time Status EKG 12/11 1828 Active Diagnostic Imaging: Viewed by Me: Radiology Read. Discussed w/RAD: Radiology Read. Radiology Impression: PATIENT: SRINI BRIONES PRESENT AGE: 57 PATIENT ACCOUNT NO: [id number] : 60 LOCATION: [facility] ORDERING PHYSICIAN: Musa COKER SERVICE DATE: 12/11/176691 EXAM TYPE: RAD - XRY-PORTABLE CHEST XRAY EXAMINATION: XR PORTABLE CHEST CLINICAL INFORMATION: Shortness of breath. COMPARISON: Chest x-ray 07/10/2017 TECHNIQUE: Portable frontal view of the chest was obtained. FINDINGS: Asymmetric elevation of the right diaphragm. This is chronic. Linear atelectasis at right lung base. There is no acute change. There is no focal consolidation. No pulmonary vascular congestion. No pleural effusion. IMPRESSION: No acute abnormality of the chest. DICTATED BY: Nav Fierro MD DATE/TIME DICTATED:12/11/171809 MANUFACTURING ASSOCIATE :CONOR DATE/TIME TRANSCRIBED:12/11/171809 CONFIDENTIAL, DO NOT COPY WITHOUT APPROPRIATE AUTHORIZATION. <Electronically signed in Other Vendor System> SIGNED BY: Nav Fierro MD 12/11/171814 Initial ED EKG: normal sinus rhythm, rate (71) (Musa Mancuso) Departure Departure Disposition: HOME OR SELF CARE Condition: Stable Clinical Impression Primary Impression: Cough Referrals: Noah Preciado MD (PCP/Family) Additional Instructions: Take Augmentin and Tessalon Perles as prescribed. Follow-up with primary care doctor. Return if any other concerns worsening symptoms. Patient may return to day program tomorrow. Please go over all results of today's visit with your primary care doctor. Contact your primary care doctor to let them know you were here in the emergency room. There may be nonspecific findings which may not be related to your visit today here in the emergency room but may require further evaluation and chronic monitoring by your primary care doctor. If you had a laceration today the chance of foreign body always remains. You should follow-up with your primary care doctor for recheck in 3-5 days for a wound check. If you had an x-ray done there is a chance that a fracture could have been missed on initial read and you should follow-up with your primary care doctor for repeat x-rays if symptoms persist. If your blood pressure was elevated here in the emergency room please have rechecked by [facility] primary care doctor within the next 48. If you were prescribed a narcotic here in the emergency room or any type of controlled substances you're not allowed to drive while taking this medication or operate any type of heavy machinery. Narcotics can make you feel lightheaded dizziness nausea and can cause constipation. You may need to metal pickling equipment operator a stool softener. Thank you for choosing [facility] emergency room. Please return to the emergency room immediately if you have any other concerns worsening of symptoms. Departure Forms: Customer Survey General Discharge Information Prescriptions: Current Visit Scripts Amoxicillin/Potassium Clav (Augmentin 875-125 Tablet) 1 TAB PO BID #14 TAB Benzonatate 1 CAP PO TIDPRN #30 CAP Comments 12/11/2017 7:37:27 PM Patient clinically looks well. Patient is in no apparent distress. Patient is nontoxic-appearing. No evidence of acute pneumonia. Patient has been resting comfortably and s or respiratory distress here in the ER. Do not feel blood work is necessary at this time. She has a raspy cough at times. (Musa Mancuso) PA/FAMILY SERVICE COUNSELOR Co-Sign Statement Statement: ED Attending supervision documentation- I saw and evaluated the patient. I have also reviewed all the pertinent lab results and diagnostic results. I agree with the findings and the plan of care as documented in the PA's/FAMILY SERVICE COUNSELOR's documentation. x I have reviewed the ED Record and agree with the PA's/FAMILY SERVICE COUNSELOR's documentation. [] Additions or exceptions (if any) to the PAs/FAMILY SERVICE COUNSELOR's note and plan are summarized below: [] (Sherman DYER,Michael) Critical Care Note Critical Care Note Critical Care Time: non-applicable (Musa Mancuso)
--- NOTE | 2017-12-11 18:15 | RADIOLOGY REPORT ---
EXAMINATION: XR PORTABLE CHEST CLINICAL INFORMATION: Shortness of breath. COMPARISON: Chest x-ray 07/10/2017 TECHNIQUE: Portable frontal view of the chest was obtained. FINDINGS: Asymmetric elevation of the right diaphragm. This is chronic. Linear atelectasis at right lung base. There is no acute change. There is no focal consolidation. No pulmonary vascular congestion. No pleural effusion. IMPRESSION: No acute abnormality of the chest.
[2017-12-11 18:44] VITALS: BP 132/71
[2017-12-11] MEDS ORDERED: AUGMENTIN 875-1 EACH PO (19:09)
[2017-12-11] MEDS ORDERED: BENZONATATE200 M1 PO (19:09)
== END 2017-12-11 19:24 ==
LOC: ERH 16:07
DX: R05 Cough (principal); E11.9 Type 2 diabetes mellitus without complications; Z79.84 Long term (current) use of oral hypoglycemic drugs; E03.9 Hypothyroidism, unspecified
CPT/HCPCS: 71045; 93005; 93010; J3490